=== PATIENT | male | born 1940 | race Caucasian/White ===

== ENCOUNTER 2017-01-05 14:04 | Inpatient (IN) | payer MEDICARE, MEDICAID ==
[~2017-01-05] VITALS: Ht 174 cm; Wt 86.8 kg
[~2017-01-05 14:04] MED LIST: ATOR40TA PO; CELE200C PO; CEPH-368 PO; DEXL60CA PO; DOCU240C53 PO; DOXY100T PO; FEXO180T; FLUT1DIS3 INH; FOLI-17 PO; FURO-93 PO; GABA600T2 PO; LEVO750T26 PO; LISI5TAB7 PO; LORA1TAB PO; LUBI24CA5 PO; METF500T4 PO; METH5TAB PO; METO25TA35 PO; NYST1000 PO; OMEG500C PO; OMEG500C3 PO; OXYC-229 PO; OXYC-96 PO; PANT40TA3 PO; PRED20TA PO; SALM50DI INH; TIOT18CA INH; TRAZ100T15 PO; TRAZ50TA18 PO; WARF5TAB PO
[2017-01-05] MEDS ORDERED: DILTIAZEM 125 MG in DEXTROSE 5% 100 ML IV SCH (14:35)
[2017-01-05] MEDS ORDERED: ASPIRIN 81 MG TABLET CHEW ONE (14:54)
[2017-01-05] MEDS ORDERED: DILTIAZEM 5 MG/ML, 5ML ONE (14:54)
[2017-01-05] MEDS ORDERED: DILTIAZEM 5 MG/ML, 5ML IV ONE (15:00)
[2017-01-05] MEDS ORDERED: ASPIRIN 81 MG TABLET CHEW PO ONE (15:00)
[2017-01-05] MEDS ORDERED: SODIUM CHLORIDE FLUSH 10ML SYR IVF ONE (15:00)
[2017-01-05 15:05] LABS: HEMOGLOBIN 12.1 g/dL (13.7-18.0)
[2017-01-05 15:17] LABS: BLOOD UREA NITROGEN 13 mg/dL (7-18)
[2017-01-05] MEDS ORDERED: METO50TA82 PO (15:59)
[2017-01-05] MEDS ORDERED: GABA800T2 PO (15:59)
[2017-01-05] MEDS ORDERED: SODIUM CHLORIDE FLUSH 10ML SYR IVF PRN (16:00)
[2017-01-05] MEDS ORDERED: CEFTRIAXONE PMX 1GM/50ML 50 ML ONE (17:06)
[2017-01-05] MEDS ORDERED: methylPREDNISolone SOD SUCC 125 MG/2 ML ONE (17:06)
[2017-01-05] MEDS: CEFTRIAXONE PMX 1GM/50ML 50 ML IV SCH (17:11)
[2017-01-05] MEDS: methylPREDNISolone SOD SUCC 125 MG/2 ML IVPush SCH ×2 (17:11→22:29)
[2017-01-05] MEDS ORDERED: DILTIAZEM 125 MG in SODIUM CHLORIDE 0.9% 100 ML IV PRN (18:00)
[2017-01-05] MEDS ORDERED: DOXYCYCLINE 100MG TABLET PO ONE (18:00)
[2017-01-05 18:02] VITALS: BP 110/73
[2017-01-05] MEDS: ENOXAPARIN 80 MG/0.8 ML SQ SCH (19:00)
[2017-01-05] MEDS ORDERED: ONDANSETRON 2MG/ML, 2ML IVPush PRN (20:30)
[2017-01-05] MEDS ORDERED: morphine SULFATE 10 MG/ML, 1ML IVPush PRN (20:30)
[2017-01-05] MEDS ORDERED: DILTIAZEM 30 MG TABLET PO SCH (21:00)
[2017-01-05 21:03] VITALS: BP 119/74
[2017-01-05] MEDS: METOPROLOL TARTRATE 50 MG TABLET PO SCH (21:06)
[2017-01-05] MEDS: TRAZODONE 50MG TABLET PO SCH (21:07)
[2017-01-05] MEDS: NICOTINE 21 MG/24 HR PATCH.TD24 TD SCH (21:07)
[2017-01-06] MEDS: DILTIAZEM 30 MG TABLET PO SCH ×4 (03:12→20:26)
[2017-01-06 03:25] VITALS: BP 108/71
[2017-01-06] MEDS: methylPREDNISolone SOD SUCC 125 MG/2 ML IVPush SCH (04:37)
[2017-01-06] MEDS ORDERED: ALBUTEROL SULFATE 2.5 MG/3 ML ONE (05:28)
[2017-01-06] MEDS: ALBUTEROL SULFATE 2.5 MG/3 ML NPPB SCH ×4 (07:00→22:03)
[2017-01-06 07:41] VITALS: BP 122/78
[2017-01-06] MEDS: LUBIPROSTONE 24 MCG CAPSULE PO SCH (09:35)
[2017-01-06] MEDS: OMEPRAZOLE 20 MG CAPSULE.DR PO SCH (09:36)
[2017-01-06] MEDS: ENOXAPARIN 80 MG/0.8 ML SQ SCH ×2 (09:36→20:26)
[2017-01-06] MEDS: METOPROLOL TARTRATE 50 MG TABLET PO SCH ×2 (09:36→20:26)
[2017-01-06] MEDS: NICOTINE 21 MG/24 HR PATCH.TD24 TD SCH (09:37)
[2017-01-06] MEDS: methylPREDNISolone SOD SUCC 40 MG/ML IVPush SCH ×3 (09:38→22:24)
[2017-01-06 11:46] VITALS: BP 110/67
[2017-01-06] MEDS: HYDROcodone/APAP 10/325 MG TABLET PO PRN ×2 (11:47→22:25)
[2017-01-06] MEDS: GABAPENTIN 400 MG CAPSULE PO SCH ×3 (11:47→20:27)
[2017-01-06 14:20] VITALS: BP 110/72
[2017-01-06] MEDS: CEFTRIAXONE PMX 1GM/50ML 50 ML IV SCH (16:41)
[2017-01-06 19:43] VITALS: BP 110/73
[2017-01-06 20:24] VITALS: BP 111/73
[2017-01-06] MEDS: ATORVASTATIN 40 MG TABLET PO SCH (20:26)
[2017-01-06] MEDS: TRAZODONE 50MG TABLET PO SCH (20:27)
[2017-01-07 03:07] VITALS: BP 109/68
[2017-01-07] MEDS: DILTIAZEM 30 MG TABLET PO SCH ×4 (03:08→21:13)
[2017-01-07] MEDS: HYDROcodone/APAP 10/325 MG TABLET PO PRN ×2 (03:56→12:40)
[2017-01-07] MEDS: methylPREDNISolone SOD SUCC 40 MG/ML IVPush SCH ×4 (05:30→22:17)
[2017-01-07] MEDS: ALBUTEROL SULFATE 2.5 MG/3 ML NPPB SCH ×4 (06:51→19:36)
[2017-01-07 07:39] VITALS: BP 110/67
[2017-01-07] MEDS: ENOXAPARIN 80 MG/0.8 ML SQ SCH ×2 (08:00→21:11)
[2017-01-07] MEDS: GABAPENTIN 400 MG CAPSULE PO SCH ×3 (09:49→21:16)
[2017-01-07] MEDS: LUBIPROSTONE 24 MCG CAPSULE PO SCH (09:51)
[2017-01-07] MEDS: OMEPRAZOLE 20 MG CAPSULE.DR PO SCH (09:51)
[2017-01-07] MEDS: ATORVASTATIN 40 MG TABLET PO SCH (09:51)
[2017-01-07] MEDS: METOPROLOL TARTRATE 50 MG TABLET PO SCH ×2 (09:51→21:16)
[2017-01-07] MEDS: NICOTINE 21 MG/24 HR PATCH.TD24 TD SCH (09:51)
[2017-01-07 14:54] VITALS: BP 111/66
[2017-01-07] MEDS: CEFTRIAXONE PMX 1GM/50ML 50 ML IV SCH (17:03)
[2017-01-07 19:00] VITALS: BP 115/70
[2017-01-07] MEDS: TRAZODONE 50MG TABLET PO SCH (21:16)
[2017-01-08 04:10] VITALS: BP 121/74
[2017-01-08] MEDS: HYDROcodone/APAP 10/325 MG TABLET PO PRN ×3 (05:48→22:42)
[2017-01-08] MEDS: DILTIAZEM 30 MG TABLET PO SCH ×4 (05:48→21:07)
[2017-01-08] MEDS: methylPREDNISolone SOD SUCC 40 MG/ML IVPush SCH ×4 (05:48→21:11)
[2017-01-08] MEDS: ALBUTEROL SULFATE 2.5 MG/3 ML NPPB SCH ×4 (07:00→19:56)
[2017-01-08 07:37] VITALS: BP 106/67
[2017-01-08] MEDS: OMEPRAZOLE 20 MG CAPSULE.DR PO SCH (09:36)
[2017-01-08] MEDS: ATORVASTATIN 40 MG TABLET PO SCH (09:37)
[2017-01-08] MEDS: METOPROLOL TARTRATE 50 MG TABLET PO SCH ×2 (09:38→21:08)
[2017-01-08] MEDS: GABAPENTIN 400 MG CAPSULE PO SCH ×3 (09:38→21:08)
[2017-01-08] MEDS: ENOXAPARIN 80 MG/0.8 ML SQ SCH ×2 (09:39→21:06)
[2017-01-08] MEDS: NICOTINE 21 MG/24 HR PATCH.TD24 TD SCH (09:39)
[2017-01-08] MEDS: LUBIPROSTONE 24 MCG CAPSULE PO SCH (09:56)
[2017-01-08 13:43] VITALS: BP 111/63
[2017-01-08] MEDS: CEFTRIAXONE PMX 1GM/50ML 50 ML IV SCH (16:59)
[2017-01-08] MEDS ORDERED: SODIUM CHLORIDE NASAL SPRAY 45ML BOTTLE NAS PRN (17:30)
[2017-01-08 19:16] VITALS: BP 115/71
[2017-01-08] MEDS: TRAZODONE 50MG TABLET PO SCH (21:07)
[2017-01-08 23:20] VITALS: BP 116/67
[2017-01-09 03:06] VITALS: BP 115/77
[2017-01-09] MEDS: DILTIAZEM 30 MG TABLET PO SCH ×4 (03:07→21:57)
[2017-01-09] MEDS: HYDROcodone/APAP 10/325 MG TABLET PO PRN ×2 (05:01→15:28)
[2017-01-09] MEDS: methylPREDNISolone SOD SUCC 40 MG/ML IVPush SCH ×4 (05:01→23:11)
[2017-01-09] MEDS: ALBUTEROL SULFATE 2.5 MG/3 ML NPPB SCH ×4 (07:00→20:00)
[2017-01-09 07:01] VITALS: BP 132/73
[2017-01-09] MEDS: ENOXAPARIN 80 MG/0.8 ML SQ SCH ×2 (08:00→20:00)
[2017-01-09] MEDS: OMEPRAZOLE 20 MG CAPSULE.DR PO SCH (08:52)
[2017-01-09] MEDS: ATORVASTATIN 40 MG TABLET PO SCH (08:54)
[2017-01-09] MEDS: METOPROLOL TARTRATE 50 MG TABLET PO SCH ×2 (08:54→21:57)
[2017-01-09] MEDS: GABAPENTIN 400 MG CAPSULE PO SCH ×3 (08:55→21:57)
[2017-01-09] MEDS: NICOTINE 21 MG/24 HR PATCH.TD24 TD SCH (08:55)
[2017-01-09] MEDS: LUBIPROSTONE 24 MCG CAPSULE PO SCH (10:00)
[2017-01-09] MEDS: MAGNESIUM OXIDE 400 MG TABLET PO SCH ×2 (10:15→21:57)
[2017-01-09 12:15] VITALS: BP 138/86
[2017-01-09] MEDS: CEFTRIAXONE PMX 1GM/50ML 50 ML IV SCH (17:09)
[2017-01-09] MEDS: WARFARIN 5 MG TABLET PO-COUM SCH (18:21)
[2017-01-09 19:36] VITALS: BP 127/80
[2017-01-09] MEDS: TRAZODONE 50MG TABLET PO SCH (21:57)
[2017-01-10] VITALS (7 sets, daily range): BP systolic 117–140; BP diastolic 74–86
[2017-01-10] MEDS: DILTIAZEM 30 MG TABLET PO SCH ×4 (05:33→22:04)
[2017-01-10] MEDS: methylPREDNISolone SOD SUCC 40 MG/ML IVPush SCH ×4 (05:33→22:05)
[2017-01-10] MEDS: HYDROcodone/APAP 10/325 MG TABLET PO PRN ×2 (05:36→18:53)
[2017-01-10 05:54] LABS: BLOOD UREA NITROGEN 32 mg/dL (7-18)
[2017-01-10] MEDS: ALBUTEROL SULFATE 2.5 MG/3 ML NPPB SCH ×4 (07:10→20:20)
[2017-01-10] MEDS: OMEPRAZOLE 20 MG CAPSULE.DR PO SCH (07:53)
[2017-01-10] MEDS: ACETAMINOPHEN 325 MG TABLET PO PRN ×2 (08:01→23:26)
[2017-01-10] MEDS: MAGNESIUM OXIDE 400 MG TABLET PO SCH ×2 (08:54→20:53)
[2017-01-10] MEDS: GABAPENTIN 400 MG CAPSULE PO SCH ×3 (08:54→20:54)
[2017-01-10] MEDS: LUBIPROSTONE 24 MCG CAPSULE PO SCH (08:55)
[2017-01-10] MEDS: ATORVASTATIN 40 MG TABLET PO SCH (08:55)
[2017-01-10] MEDS: METOPROLOL TARTRATE 50 MG TABLET PO SCH ×2 (08:55→20:54)
[2017-01-10] MEDS: ENOXAPARIN 80 MG/0.8 ML SQ SCH ×2 (08:56→20:54)
[2017-01-10] MEDS: NICOTINE 21 MG/24 HR PATCH.TD24 TD SCH (08:58)
[2017-01-10] MEDS ORDERED: WARFARIN 5 MG TABLET PO-COUM ONE (11:00)
[2017-01-10] MEDS: CEFTRIAXONE PMX 1GM/50ML 50 ML IV SCH (16:16)
[2017-01-10] MEDS: WARFARIN 5 MG TABLET PO-COUM SCH (18:51)
[2017-01-10] MEDS: TRAZODONE 50MG TABLET PO SCH (20:54)
[2017-01-11 02:20] VITALS: BP 102/57
[2017-01-11 03:13] VITALS: BP 122/72
[2017-01-11] MEDS: DILTIAZEM 30 MG TABLET PO SCH ×4 (03:23→21:54)
[2017-01-11] MEDS: HYDROcodone/APAP 10/325 MG TABLET PO PRN ×3 (03:25→16:07)
[2017-01-11] MEDS: methylPREDNISolone SOD SUCC 40 MG/ML IVPush SCH ×4 (03:25→21:54)
[2017-01-11 06:45] VITALS: BP 128/83
[2017-01-11] MEDS: ALBUTEROL SULFATE 2.5 MG/3 ML NPPB SCH ×4 (07:00→20:15)
[2017-01-11] MEDS: NICOTINE 21 MG/24 HR PATCH.TD24 TD SCH (08:14)
[2017-01-11] MEDS: OMEPRAZOLE 20 MG CAPSULE.DR PO SCH (08:14)
[2017-01-11] MEDS: GABAPENTIN 400 MG CAPSULE PO SCH ×3 (08:14→21:15)
[2017-01-11] MEDS: ATORVASTATIN 40 MG TABLET PO SCH (08:14)
[2017-01-11] MEDS: LUBIPROSTONE 24 MCG CAPSULE PO SCH (08:14)
[2017-01-11] MEDS: MAGNESIUM OXIDE 400 MG TABLET PO SCH ×2 (08:14→21:15)
[2017-01-11] MEDS: METOPROLOL TARTRATE 50 MG TABLET PO SCH ×2 (08:14→21:15)
[2017-01-11] MEDS: ENOXAPARIN 80 MG/0.8 ML SQ SCH ×2 (08:15→21:14)
[2017-01-11 13:17] VITALS: BP 127/74
[2017-01-11] MEDS: CEFTRIAXONE PMX 1GM/50ML 50 ML IV SCH (16:06)
[2017-01-11] MEDS ORDERED: POLYETHYLENE GLYCOL 17 GM PACKET PO ONE (16:30)
[2017-01-11] MEDS: WARFARIN 5 MG TABLET PO-COUM SCH (18:00)
[2017-01-11 20:27] VITALS: BP 127/85
[2017-01-11 21:09] VITALS: BP 136/83
[2017-01-11] MEDS: DOCUSATE 50 MG/5 ML, 10ML UDC PO SCH (21:15)
[2017-01-11] MEDS: TRAZODONE 50MG TABLET PO SCH (21:53)
[2017-01-12 02:36] VITALS: BP 111/58
[2017-01-12] MEDS: DILTIAZEM 30 MG TABLET PO SCH (04:24)
[2017-01-12] MEDS: methylPREDNISolone SOD SUCC 40 MG/ML IVPush SCH (04:24)
[2017-01-12] MEDS: HYDROcodone/APAP 10/325 MG TABLET PO PRN (04:41)
[2017-01-12 06:30] VITALS: BP 121/71
[2017-01-12] MEDS: ALBUTEROL SULFATE 2.5 MG/3 ML NPPB SCH (06:45)
[2017-01-12] MEDS: ENOXAPARIN 80 MG/0.8 ML SQ SCH (08:00)
[2017-01-12] MEDS ORDERED: PRAMIPEXOLE 0.5MG TABLET PO SCH (09:00)
[2017-01-12] MEDS: GABAPENTIN 400 MG CAPSULE PO SCH (09:46)
[2017-01-12] MEDS: NICOTINE 21 MG/24 HR PATCH.TD24 TD SCH (09:46)
[2017-01-12] MEDS: OMEPRAZOLE 20 MG CAPSULE.DR PO SCH (09:47)
[2017-01-12] MEDS: DOCUSATE 50 MG/5 ML, 10ML UDC PO SCH (09:47)
[2017-01-12] MEDS: ATORVASTATIN 40 MG TABLET PO SCH (09:47)
[2017-01-12] MEDS: METOPROLOL TARTRATE 50 MG TABLET PO SCH (09:47)
[2017-01-12] MEDS: LUBIPROSTONE 24 MCG CAPSULE PO SCH (09:47)
[2017-01-12] MEDS: MAGNESIUM OXIDE 400 MG TABLET PO SCH (09:47)
[2017-01-12] MEDS ORDERED: DOCU50LI12 PO (09:51)
[2017-01-12] MEDS ORDERED: DILT30TA27 PO (09:51)
[2017-01-12] MEDS ORDERED: METO25TA35 PO (09:53)
[2017-01-12] MEDS ORDERED: ALBUTEROL SULFATE 2.5 MG/3 ML NPPB SCH (21:00)
== END 2017-01-12 12:28 | disposition home health service (06) | DRG 871 ==
LOC: ED 15:55 → EDIP 15:56 → ED 16:10 → 5SO 17:52 → 4EST 01-08 23:05 → DCLOUNGE 01-12 11:56
PROC: 0T9B70Z Drainage of Bladder with Drainage Device, Via Natural or Artificial Opening (ICD-10-PCS; principal; 2017-01-05)
DX: A41.9 Sepsis, unspecified organism (principal); J18.9 Pneumonia, unspecified organism; J44.0 Chronic obstructive pulmonary disease with (acute) lower respiratory infection; I50.32 Chronic diastolic (congestive) heart failure; J44.1 Chronic obstructive pulmonary disease with (acute) exacerbation; J96.10 Chronic respiratory failure, unspecified whether with hypoxia or hypercapnia; I48.91 Unspecified atrial fibrillation; E11.9 Type 2 diabetes mellitus without complications; M19.90 Unspecified osteoarthritis, unspecified site; E78.5 Hyperlipidemia, unspecified; I11.0 Hypertensive heart disease with heart failure; I48.2 Chronic atrial fibrillation; I71.4 Abdominal aortic aneurysm, without rupture; K58.9 Irritable bowel syndrome, unspecified; Z79.01 Long term (current) use of anticoagulants; Z79.82 Long term (current) use of aspirin; Z86.79 Personal history of other diseases of the circulatory system; Z87.891 Personal history of nicotine dependence; Z90.49 Acquired absence of other specified parts of digestive tract; Z95.2 Presence of prosthetic heart valve; Z99.81 Dependence on supplemental oxygen
CPT/HCPCS: 36415; 71010; 74220; 76700; 80048; 81003; 82040; 83036; 83735; 83880; 84100; 84484; 85025; 85610; 85730; 87040; 87070; 87205; 93005; 94640; 96365; 96366; 96375; J0696; J1650; J7613; J2920; J2930

== ENCOUNTER 2017-03-10 17:12 | Inpatient (IN) | payer MEDICARE, MEDICAID ==
[~2017-03-10] VITALS: Ht 172.7 cm; Wt 84.4 kg
[~2017-03-10 17:12] MED LIST changes: +DILT30TA27 PO; +DOCU50LI12 PO; +GABA800T2 PO; +METO50TA82 PO
[2017-03-10] MEDS ORDERED: SODIUM CHLORIDE FLUSH 10ML SYR IVF ONE (17:30)
[2017-03-10] MEDS ORDERED: ALBUTEROL/IPRATROPIUM 2.5MG/0.5MG, 3 ML NPPB ONE (17:30)
[2017-03-10] MEDS ORDERED: ALBUTEROL/IPRATROPIUM 2.5MG/0.5MG, 3 ML ONE (17:40)
[2017-03-10 17:55] LABS: ASPARTATE AMINO TRANSFERASE 21 U/L (15-37); BLOOD UREA NITROGEN 13 mg/dL (7-18)
[2017-03-10 18:08] LABS: IS PT STATUS REG ER OR PRE ER? YES
[2017-03-10] MEDS ORDERED: SODIUM CHLORIDE 0.9%, 500ML IVBOLUS ONE ×2 (18:30→21:00)
[2017-03-10] MEDS ORDERED: FENTANYL PF 100 MCG/2ML ONE (20:34)
[2017-03-10] MEDS ORDERED: OMNIPAQUE 350 MG/ML, 100ML BOTTLE ONE (20:40)
[2017-03-10] MEDS ORDERED: DILTIAZEM 5 MG/ML, 5ML ONE (20:43)
[2017-03-10] MEDS ORDERED: FENTANYL PF 100 MCG/2ML IVPush PRN (21:00)
[2017-03-10] MEDS ORDERED: DILTIAZEM 5 MG/ML, 5ML IVPush ONE (21:00)
[2017-03-10] MEDS: DILTIAZEM 125 MG in SODIUM CHLORIDE 0.9% 100 ML IV PRN (21:16)
[2017-03-10] MEDS ORDERED: BISACODYL 10 MG SUPP PR PRN (22:00)
[2017-03-10] MEDS ORDERED: POLYETHYLENE GLYCOL 17 GM PACKET PO PRN (22:00)
[2017-03-10] MEDS ORDERED: SODIUM CHLORIDE FLUSH 3ML SYRINGE IVF SCH (22:00)
[2017-03-10] MEDS ORDERED: NITROGLYCERIN 0.4 MG BOTTLE (25 TABS) SL PRN (22:00)
[2017-03-10] MEDS ORDERED: ONDANSETRON 2MG/ML, 2ML IVPush PRN (22:00)
[2017-03-10] MEDS ORDERED: DILTIAZEM 30 MG TABLET PO SCH (22:00)
[2017-03-10] MEDS ORDERED: DILTIAZEM 125 MG in SODIUM CHLORIDE 0.9% 100 ML IV SCH (22:30)
[2017-03-10 22:53] LABS: IS PT STATUS REG ER OR PRE ER? YES
[2017-03-10 23:51] VITALS: BP 117/68
[2017-03-11] MEDS: FUROSEMIDE 20 MG/2 ML IV SCH ×3 (00:13→16:39)
[2017-03-11] MEDS: metFORMIN 500 MG TABLET PO SCH ×4 (00:14→08:15)
[2017-03-11] MEDS: DILTIAZEM 125 MG in SODIUM CHLORIDE 0.9% 100 ML IV PRN (00:16)
[2017-03-11 00:37] VITALS: BP 117/68
[2017-03-11] MEDS: TRAZODONE 50MG TABLET PO SCH ×2 (00:55→21:27)
[2017-03-11] MEDS: GABAPENTIN 400 MG CAPSULE PO SCH ×4 (00:56→21:28)
[2017-03-11] MEDS: METOPROLOL TARTRATE 50 MG TABLET PO SCH ×3 (00:56→21:28)
[2017-03-11] MEDS: ACETAMINOPHEN 325 MG TABLET PO PRN (03:17)
[2017-03-11 03:36] VITALS: BP 119/74
[2017-03-11] MEDS: morphine SULFATE 10 MG/ML, 1ML IVPush PRN ×3 (03:47→14:47)
[2017-03-11 04:41] LABS: ASPARTATE AMINO TRANSFERASE 17 U/L (15-37); BLOOD UREA NITROGEN 13 mg/dL (7-18)
[2017-03-11 04:43] LABS: IS PT STATUS REG ER OR PRE ER? NO
[2017-03-11] MEDS: GUAIFENESIN/DM 100-10MG, 5ML UDC PO PRN ×2 (05:43→21:34)
[2017-03-11] MEDS: ASPIRIN 81 MG TABLET EC PO SCH (05:43)
[2017-03-11 06:30] VITALS: BP 102/70
[2017-03-11] MEDS ORDERED: ALBUTEROL SULFATE 2.5 MG/3 ML ONE (07:12)
[2017-03-11] MEDS ORDERED: ALBUTEROL SULFATE 2.5 MG/3 ML NPPB PRN (07:30)
[2017-03-11] MEDS: LISINOPRIL 5 MG TABLET PO SCH (08:09)
[2017-03-11] MEDS: LUBIPROSTONE 24 MCG CAPSULE PO SCH (08:09)
[2017-03-11] MEDS: SENNA/DOCUSATE TABLET PO SCH ×2 (08:14→21:46)
[2017-03-11] MEDS: SODIUM CHLORIDE FLUSH 10ML SYR IVF SCH ×3 (08:19→21:27)
[2017-03-11] MEDS ORDERED: ATORVASTATIN 40 MG TABLET PO SCH (09:00)
[2017-03-11] MEDS ORDERED: COLC0.6T37 PO (09:16)
[2017-03-11 12:30] VITALS: BP 101/67
[2017-03-11] MEDS ORDERED: MAGNESIUM SULFATE PMX 2GM/50ML 50 ML IV ONE (13:30)
[2017-03-11] MEDS ORDERED: DEXTROSE 50%, 50ML SYRINGE IVPush PRN (13:30)
[2017-03-11] MEDS ORDERED: GLUCAGON 1 MG IM PRN (13:30)
[2017-03-11] MEDS ORDERED: DEXTROSE 4 GM TAB.CHEW PO PRN (13:30)
[2017-03-11] MEDS: COLCHICINE 0.6 MG TABLET PO SCH (14:32)
[2017-03-11 15:50] VITALS: BP 90/60
[2017-03-11] MEDS: INSULIN REGULAR 100 UNITS/ML, 3ML VIAL SQ-INSULIN SCH ×2 (16:00→21:00)
[2017-03-11] MEDS ORDERED: DIGOXIN 0.25 MG/ML, 2ML IVPush ONE (16:00)
[2017-03-11] MEDS ORDERED: WARFARIN 5 MG TABLET PO-COUM SCH (18:00)
[2017-03-11 18:17] VITALS: BP 109/71
[2017-03-11] MEDS: ATORVASTATIN 40 MG TABLET PO SCH (21:28)
[2017-03-12 01:57] VITALS: BP 96/60
[2017-03-12 04:54] LABS: BLOOD UREA NITROGEN 18 mg/dL (7-18)
[2017-03-12] MEDS: ASPIRIN 81 MG TABLET EC PO SCH (06:26)
[2017-03-12] MEDS: GUAIFENESIN/DM 100-10MG, 5ML UDC PO PRN ×2 (06:27→22:32)
[2017-03-12 06:40] LABS: LARGE PLATELETS 1+
[2017-03-12] MEDS: INSULIN REGULAR 100 UNITS/ML, 3ML VIAL SQ-INSULIN SCH ×4 (07:00→21:00)
[2017-03-12] MEDS: FUROSEMIDE 20 MG/2 ML IV SCH ×2 (08:14→16:20)
[2017-03-12] MEDS: LUBIPROSTONE 24 MCG CAPSULE PO SCH (08:14)
[2017-03-12 08:15] VITALS: BP 116/73
[2017-03-12] MEDS: SODIUM CHLORIDE FLUSH 10ML SYR IVF SCH ×4 (08:15→22:32)
[2017-03-12] MEDS: GABAPENTIN 400 MG CAPSULE PO SCH ×3 (08:15→19:33)
[2017-03-12] MEDS: COLCHICINE 0.6 MG TABLET PO SCH (08:15)
[2017-03-12] MEDS: METOPROLOL TARTRATE 50 MG TABLET PO SCH ×2 (08:15→22:32)
[2017-03-12] MEDS: LISINOPRIL 5 MG TABLET PO SCH (08:15)
[2017-03-12 12:40] VITALS: BP 124/75
[2017-03-12] MEDS: GUAIFENESIN ER 600 MG TABLET PO SCH ×2 (13:29→22:32)
[2017-03-12] MEDS: SPIRONOLACTONE 25 MG TABLET PO SCH (13:29)
[2017-03-12] MEDS: morphine SULFATE 10 MG/ML, 1ML IVPush PRN ×2 (15:59→19:33)
[2017-03-12] MEDS: FLUTICASONE/VILANTEROL 100-25MCG/INH INH SCH (16:17)
[2017-03-12] MEDS: OXYcodone IR 5MG TABLET PO PRN ×2 (17:56→22:31)
[2017-03-12] MEDS ORDERED: DILTIAZEM 5 MG/ML, 5ML IVPush ONE (18:00)
[2017-03-12] MEDS ORDERED: DILTIAZEM 5 MG/ML, 5ML ONE (18:01)
[2017-03-12 18:14] VITALS: BP 96/59
[2017-03-12 19:05] VITALS: BP 97/64
[2017-03-12] MEDS: TRAZODONE 50MG TABLET PO SCH (22:31)
[2017-03-12] MEDS: ATORVASTATIN 40 MG TABLET PO SCH (22:32)
[2017-03-13 00:55] VITALS: BP 91/59
[2017-03-13 06:03] LABS: BLOOD UREA NITROGEN 18 mg/dL (7-18)
[2017-03-13] MEDS: OXYcodone IR 5MG TABLET PO PRN ×4 (06:27→20:21)
[2017-03-13] MEDS: GUAIFENESIN/DM 100-10MG, 5ML UDC PO PRN (06:27)
[2017-03-13] MEDS: ASPIRIN 81 MG TABLET EC PO SCH (06:27)
[2017-03-13] MEDS: INSULIN REGULAR 100 UNITS/ML, 3ML VIAL SQ-INSULIN SCH ×4 (07:00→22:04)
[2017-03-13 07:05] VITALS: BP 100/65
[2017-03-13] MEDS: SENNA/DOCUSATE TABLET PO SCH (09:00)
[2017-03-13] MEDS: FUROSEMIDE 20 MG/2 ML IV SCH ×2 (09:11→16:32)
[2017-03-13] MEDS: SODIUM CHLORIDE FLUSH 10ML SYR IVF SCH ×4 (09:11→20:23)
[2017-03-13] MEDS: FLUTICASONE/VILANTEROL 100-25MCG/INH INH SCH (09:11)
[2017-03-13] MEDS: SPIRONOLACTONE 25 MG TABLET PO SCH (09:12)
[2017-03-13] MEDS: LUBIPROSTONE 24 MCG CAPSULE PO SCH (09:12)
[2017-03-13] MEDS: COLCHICINE 0.6 MG TABLET PO SCH (09:12)
[2017-03-13] MEDS: GUAIFENESIN ER 600 MG TABLET PO SCH ×2 (09:12→20:23)
[2017-03-13] MEDS: METOPROLOL TARTRATE 50 MG TABLET PO SCH ×2 (09:13→20:22)
[2017-03-13] MEDS: GABAPENTIN 400 MG CAPSULE PO SCH ×3 (09:13→20:22)
[2017-03-13] MEDS: LISINOPRIL 5 MG TABLET PO SCH (09:13)
[2017-03-13 12:30] VITALS: BP 98/57
[2017-03-13] MEDS: methylPREDNISolone SOD SUCC 125 MG/2 ML IVPush SCH ×2 (16:31→23:14)
[2017-03-13] MEDS ORDERED: WARFARIN 2 MG TABLET PO-COUM SCH (18:00)
[2017-03-13 19:29] VITALS: BP 107/69
[2017-03-13] MEDS: ATORVASTATIN 40 MG TABLET PO SCH (20:22)
[2017-03-13] MEDS: morphine SULFATE 10 MG/ML, 1ML IVPush PRN (23:13)
[2017-03-13] MEDS: TRAZODONE 50MG TABLET PO SCH (23:14)
[2017-03-14] MEDS: OXYcodone IR 5MG TABLET PO PRN ×2 (01:04→16:28)
[2017-03-14 02:27] VITALS: BP 106/67
[2017-03-14] MEDS: GUAIFENESIN/DM 100-10MG, 5ML UDC PO PRN (04:25)
[2017-03-14] MEDS: ASPIRIN 81 MG TABLET EC PO SCH (05:04)
[2017-03-14] MEDS: methylPREDNISolone SOD SUCC 125 MG/2 ML IVPush SCH ×3 (05:04→22:55)
[2017-03-14] MEDS: ACETAMINOPHEN 325 MG TABLET PO PRN (05:05)
[2017-03-14 06:24] LABS: BLOOD UREA NITROGEN 23 mg/dL (7-18)
[2017-03-14 08:03] VITALS: BP 105/67
[2017-03-14] MEDS: INSULIN REGULAR 100 UNITS/ML, 3ML VIAL SQ-INSULIN SCH ×4 (08:19→20:29)
[2017-03-14] MEDS: FUROSEMIDE 20 MG/2 ML IV SCH (08:19)
[2017-03-14] MEDS: FLUTICASONE/VILANTEROL 100-25MCG/INH INH SCH (08:20)
[2017-03-14] MEDS: LUBIPROSTONE 24 MCG CAPSULE PO SCH (08:20)
[2017-03-14] MEDS: SODIUM CHLORIDE FLUSH 10ML SYR IVF SCH ×3 (08:20→20:32)
[2017-03-14] MEDS: SPIRONOLACTONE 25 MG TABLET PO SCH (08:20)
[2017-03-14] MEDS: METOPROLOL TARTRATE 50 MG TABLET PO SCH ×2 (08:21→20:32)
[2017-03-14] MEDS: GUAIFENESIN ER 600 MG TABLET PO SCH ×2 (08:21→20:32)
[2017-03-14] MEDS: COLCHICINE 0.6 MG TABLET PO SCH (08:21)
[2017-03-14] MEDS: GABAPENTIN 400 MG CAPSULE PO SCH ×3 (08:21→20:32)
[2017-03-14] MEDS: SENNA/DOCUSATE TABLET PO SCH (08:22)
[2017-03-14] MEDS: LISINOPRIL 5 MG TABLET PO SCH (08:22)
[2017-03-14] MEDS ORDERED: MAGNESIUM SULFATE PMX 2GM/50ML 50 ML IV ONE (15:00)
[2017-03-14 15:05] VITALS: BP 99/62
[2017-03-14 17:06] VITALS: BP 105/66
[2017-03-14] MEDS ORDERED: WARFARIN 2 MG TABLET PO-COUM SCH (18:00)
[2017-03-14] MEDS ORDERED: SODIUM CHLORIDE NASAL SPRAY 45ML BOTTLE NAS PRN (18:00)
[2017-03-14 18:20] VITALS: BP 100/63
[2017-03-14] MEDS ORDERED: MORPHINE SULFATE 4 MG/ML, 1ML ONE (20:09)
[2017-03-14] MEDS: morphine SULFATE 10 MG/ML, 1ML IVPush PRN (20:26)
[2017-03-14] MEDS ORDERED: DEXTROSE 4 GM TAB.CHEW PO PRN ×2 (20:30)
[2017-03-14] MEDS ORDERED: GLUCAGON 1 MG IM PRN (20:30)
[2017-03-14] MEDS ORDERED: DEXTROSE 50%, 50ML SYRINGE IVPush PRN ×2 (20:30)
[2017-03-14] MEDS ORDERED: POLYETHYLENE GLYCOL 17 GM PACKET PO PRN ×2 (20:30)
[2017-03-14] MEDS ORDERED: ALBUTEROL SULFATE 2.5 MG/3 ML NPPB PRN (20:30)
[2017-03-14] MEDS ORDERED: BISACODYL 10 MG SUPP PR PRN ×2 (20:30)
[2017-03-14] MEDS: ATORVASTATIN 40 MG TABLET PO SCH (20:32)
[2017-03-14] MEDS ORDERED: SODIUM CHLORIDE FLUSH 10ML SYR IVF SCH (21:00)
[2017-03-14] MEDS: TRAZODONE 50MG TABLET PO SCH (22:55)
[2017-03-15 02:33] VITALS: BP 98/59
[2017-03-15 05:40] LABS: BLOOD UREA NITROGEN 29 mg/dL (7-18)
[2017-03-15 06:43] LABS: ANISOCYTOSIS 1+
[2017-03-15 06:44] LABS: LARGE PLATELETS 1+; POLYCHROMASIA 1+
[2017-03-15 07:04] VITALS: BP 115/70
[2017-03-15] MEDS: SPIRONOLACTONE 25 MG TABLET PO SCH (08:29)
[2017-03-15] MEDS: SENNA/DOCUSATE TABLET PO SCH (08:29)
[2017-03-15] MEDS: methylPREDNISolone SOD SUCC 125 MG/2 ML IVPush SCH ×2 (08:29→16:04)
[2017-03-15] MEDS: LUBIPROSTONE 24 MCG CAPSULE PO SCH (08:30)
[2017-03-15] MEDS: GABAPENTIN 400 MG CAPSULE PO SCH ×2 (08:30→16:03)
[2017-03-15] MEDS: METOPROLOL TARTRATE 50 MG TABLET PO SCH (08:30)
[2017-03-15] MEDS: GUAIFENESIN ER 600 MG TABLET PO SCH (08:30)
[2017-03-15] MEDS: COLCHICINE 0.6 MG TABLET PO SCH (08:30)
[2017-03-15] MEDS: ASPIRIN 81 MG TABLET EC PO SCH (08:30)
[2017-03-15] MEDS: LISINOPRIL 5 MG TABLET PO SCH (08:30)
[2017-03-15] MEDS: INSULIN REGULAR 100 UNITS/ML, 3ML VIAL SQ-INSULIN SCH ×3 (08:31→16:04)
[2017-03-15] MEDS: FLUTICASONE/VILANTEROL 100-25MCG/INH INH SCH (08:31)
[2017-03-15] MEDS: SODIUM CHLORIDE FLUSH 10ML SYR IVF SCH (08:31)
[2017-03-15] MEDS ORDERED: FUROSEMIDE 40 MG TABLET PO SCH (09:00)
[2017-03-15] MEDS: OXYcodone IR 5MG TABLET PO PRN ×2 (11:27→16:03)
[2017-03-15 14:00] VITALS: BP 106/63
[2017-03-15] MEDS ORDERED: SPIR25TA PO (16:54)
[2017-03-15] MEDS ORDERED: METO50TA82 PO (16:54)
[2017-03-15] MEDS ORDERED: ASPI-621 PO (16:54)
[2017-03-15] MEDS ORDERED: PRED10TA PO (16:54)
[2017-03-15] MEDS ORDERED: FURO40TA6 PO (16:54)
[2017-03-15] MEDS ORDERED: WARFARIN 2 MG TABLET PO-COUM ONE (18:00)
== END 2017-03-15 18:20 | DRG 308 ==
LOC: ED 20:31 → EDIP 21:03 → 5SO 23:13 → 4EST 03-14 16:59
PROVIDERS: ADMIT Internal Medicine; ATTEND Internal Medicine
DX: I48.92 Unspecified atrial flutter (principal); I50.43 Acute on chronic combined systolic (congestive) and diastolic (congestive) heart failure; J96.10 Chronic respiratory failure, unspecified whether with hypoxia or hypercapnia; J44.1 Chronic obstructive pulmonary disease with (acute) exacerbation; D68.69 Other thrombophilia; I11.0 Hypertensive heart disease with heart failure; D50.9 Iron deficiency anemia, unspecified; I48.91 Unspecified atrial fibrillation; K76.0 Fatty (change of) liver, not elsewhere classified; F17.210 Nicotine dependence, cigarettes, uncomplicated; E11.42 Type 2 diabetes mellitus with diabetic polyneuropathy; E78.5 Hyperlipidemia, unspecified; M19.90 Unspecified osteoarthritis, unspecified site; Z96.659 Presence of unspecified artificial knee joint; Z90.49 Acquired absence of other specified parts of digestive tract; Z95.2 Presence of prosthetic heart valve; Z95.1 Presence of aortocoronary bypass graft; Z79.01 Long term (current) use of anticoagulants; Z87.01 Personal history of pneumonia (recurrent); Z86.19 Personal history of other infectious and parasitic diseases; Z79.84 Long term (current) use of oral hypoglycemic drugs; Z79.899 Other long term (current) drug therapy; Z71.3 Dietary counseling and surveillance
CPT/HCPCS: 36415; 71010; 71275; 76700; 80048; 80053; 82962; 83735; 83880; 84439; 84443; 84484; 85025; 85610; 85730; 93005; 93306; 93931; 93970; 94640; 96361; 96374; J1815; J3010; J7620; Q9967; J1160; J1940; J2270; J2930; J3475; J7040

== ENCOUNTER 2017-05-24 13:46 | Inpatient (IN) | payer MEDICARE, MEDICAID ==
[~2017-05-24] VITALS: Ht 172.7 cm; Wt 96.6 kg
[~2017-05-24 13:46] MED LIST changes: +ASPI-621 PO; +COLC0.6T37 PO; -DEXL60CA PO; +DEXL60CA2 PO; +FURO40TA6 PO; -LUBI24CA5 PO; +LUBI24CA7 PO; -OXYC-229 PO; +OXYC-293 PO; +OXYC-307 PO; -OXYC-96 PO; +PRED10TA PO; +SPIR25TA PO
[2017-05-24] MEDS ORDERED: DILTIAZEM 5 MG/ML, 5ML ONE (14:27)
[2017-05-24] MEDS ORDERED: ASPIRIN 81 MG TABLET CHEW ONE (14:27)
[2017-05-24] MEDS ORDERED: DILTIAZEM 5 MG/ML, 5ML IVPush ONE (14:30)
[2017-05-24] MEDS ORDERED: ASPIRIN 81 MG TABLET CHEW PO ONE (14:30)
[2017-05-24 14:44] LABS: BLOOD UREA NITROGEN 17 mg/dL (7-18)
[2017-05-24 14:50] LABS: IS PT STATUS REG ER OR PRE ER? YES
[2017-05-24 14:58] LABS: HEMATOCRIT 42.4 % (39.2-51.8); HEMOGLOBIN 12.9 g/dL (13.7-18.0); WHITE BLOOD COUNT 14.7 x10^3/uL (3.4-10)
[2017-05-24 14:59] LABS: ANISOCYTOSIS 1+; HYPOCHROMIA 1+
[2017-05-24 15:00] LABS: LARGE PLATELETS 1+; POLYCHROMASIA 1+
[2017-05-24 17:50] VITALS: BP 104/64
[2017-05-24] MEDS ORDERED: DOCUSATE 100 MG CAPSULE PO PRN (18:30)
[2017-05-24] MEDS ORDERED: ACETAMINOPHEN 325 MG TABLET PO PRN (18:30)
[2017-05-24] MEDS ORDERED: LIDO35.46 TP (18:44)
[2017-05-24] MEDS ORDERED: WARF5TAB7 PO ×2 (18:45)
[2017-05-24 18:57] VITALS: BP 107/70
[2017-05-24 19:58] VITALS: BP 107/70
[2017-05-24] MEDS: DOCUSATE 100 MG CAPSULE PO SCH (20:34)
[2017-05-24] MEDS: GABAPENTIN 400 MG CAPSULE PO SCH (20:34)
[2017-05-24 20:35] VITALS: BP 112/63
[2017-05-24] MEDS: SODIUM CHLORIDE 0.9% 1,000 ML IV SCH (20:36)
[2017-05-24] MEDS: GUAIFENESIN ER 600 MG TABLET PO SCH (20:37)
[2017-05-24] MEDS: NICOTINE 14MG/24 HR PATCH.TD24 TD SCH (20:37)
[2017-05-24] MEDS: METOPROLOL TARTRATE 50 MG TABLET PO SCH (20:37)
[2017-05-24] MEDS: TRAZODONE 50MG TABLET PO SCH (20:38)
[2017-05-24] MEDS ORDERED: CEFTRIAXONE PMX 2GM/50ML 50 ML IV SCH (21:30)
[2017-05-24] MEDS ORDERED: AZITHROMYCIN 500 MG in SODIUM CHLORIDE 0.9% 250 ML IV SCH (21:30)
[2017-05-24 22:15] VITALS: BP 113/75
[2017-05-24] MEDS: INSULIN ASPART 100 UNITS/ML, PEN SQ-INSULIN SCH (23:00)
[2017-05-24] MEDS ORDERED: OMNIPAQUE 350 MG/ML, 100ML BOTTLE ONE (23:26)
[2017-05-24] MEDS: LIDOCAINE GEL 2%, 5ML TP PRN (23:41)
[2017-05-25] MEDS ORDERED: ALBUTEROL/IPRATROPIUM 2.5MG/0.5MG, 3 ML ONE (00:58)
[2017-05-25] MEDS ORDERED: FUROSEMIDE 20 MG/2 ML ONE (01:19)
[2017-05-25 01:30] VITALS: BP 98/67
[2017-05-25] MEDS ORDERED: FUROSEMIDE 20 MG/2 ML IV ONE (01:30)
[2017-05-25] MEDS ORDERED: ALBUTEROL/IPRATROPIUM 2.5MG/0.5MG, 3 ML NPPB PRN (01:30)
[2017-05-25 05:48] LABS: BLOOD UREA NITROGEN 16 mg/dL (7-18)
[2017-05-25 05:49] LABS: HEMATOCRIT 35.1 % (39.2-51.8); HEMOGLOBIN 10.9 g/dL (13.7-18.0); WHITE BLOOD COUNT 12.4 x10^3/uL (3.4-10)
[2017-05-25] MEDS: INSULIN ASPART 100 UNITS/ML, PEN SQ-INSULIN SCH ×4 (07:00→20:41)
[2017-05-25] MEDS: ALBUTEROL/IPRATROPIUM 2.5MG/0.5MG, 3 ML NPPB SCH ×4 (07:00→20:00)
[2017-05-25 07:28] VITALS: BP 110/65
[2017-05-25] MEDS ORDERED: HYDROcodone/CHLORPHENIR ORAL SUSP PO PRN (07:30)
[2017-05-25] MEDS: SODIUM CHLORIDE 0.9% 1,000 ML IV SCH ×2 (07:36→20:56)
[2017-05-25] MEDS ORDERED: HOLD WARFARIN MC PRN (08:00)
[2017-05-25 08:15] LABS: TOTAL IRON BINDING CAPACITY 402 mcg/dL (250-450)
[2017-05-25] MEDS: LIDOCAINE GEL 2%, 5ML TP PRN (09:43)
[2017-05-25] MEDS: FUROSEMIDE 40 MG TABLET PO SCH (09:45)
[2017-05-25] MEDS: METOPROLOL TARTRATE 50 MG TABLET PO SCH ×2 (09:45→20:40)
[2017-05-25] MEDS: LISINOPRIL 5 MG TABLET PO SCH (09:45)
[2017-05-25] MEDS: DOCUSATE 100 MG CAPSULE PO SCH ×2 (09:46→20:40)
[2017-05-25] MEDS: SPIRONOLACTONE 25 MG TABLET PO SCH (09:46)
[2017-05-25] MEDS: GUAIFENESIN ER 600 MG TABLET PO SCH ×2 (09:46→20:40)
[2017-05-25] MEDS: COLCHICINE 0.6 MG TABLET PO SCH (09:46)
[2017-05-25] MEDS: LUBIPROSTONE 24 MCG CAPSULE PO SCH (09:47)
[2017-05-25] MEDS: GABAPENTIN 400 MG CAPSULE PO SCH ×3 (09:51→20:41)
[2017-05-25 15:21] VITALS: BP 97/60
[2017-05-25 19:20] VITALS: BP 104/68
[2017-05-25] MEDS: NICOTINE 14MG/24 HR PATCH.TD24 TD SCH (20:41)
[2017-05-25] MEDS: ATORVASTATIN 40 MG TABLET PO SCH (20:41)
[2017-05-25] MEDS: TRAZODONE 50MG TABLET PO SCH (22:29)
[2017-05-26] MEDS: ALBUTEROL/IPRATROPIUM 2.5MG/0.5MG, 3 ML NPPB SCH ×2 (07:00→10:20)
[2017-05-26 08:00] VITALS: BP 101/67
[2017-05-26] MEDS: DOCUSATE 100 MG CAPSULE PO SCH (09:00)
[2017-05-26] MEDS ORDERED: WARF5TAB PO (09:25)
[2017-05-26] MEDS: SODIUM CHLORIDE 0.9% 1,000 ML IV SCH (10:16)
[2017-05-26] MEDS: INSULIN ASPART 100 UNITS/ML, PEN SQ-INSULIN SCH (10:18)
[2017-05-26] MEDS: LUBIPROSTONE 24 MCG CAPSULE PO SCH (10:19)
[2017-05-26] MEDS: SPIRONOLACTONE 25 MG TABLET PO SCH (10:19)
[2017-05-26] MEDS: COLCHICINE 0.6 MG TABLET PO SCH (10:20)
[2017-05-26] MEDS: FUROSEMIDE 40 MG TABLET PO SCH (10:21)
[2017-05-26] MEDS: GUAIFENESIN ER 600 MG TABLET PO SCH (10:21)
[2017-05-26] MEDS: LISINOPRIL 5 MG TABLET PO SCH (10:22)
[2017-05-26] MEDS: ATORVASTATIN 40 MG TABLET PO SCH (10:22)
[2017-05-26] MEDS: METOPROLOL TARTRATE 50 MG TABLET PO SCH (10:22)
[2017-05-26] MEDS: GABAPENTIN 400 MG CAPSULE PO SCH (10:22)
== END 2017-05-26 13:20 | disposition home or self-care (01) | DRG 291 ==
LOC: ED 15:22 → EDIP 16:06 → 5SO 17:28 → DCLOUNGE 05-26 13:05
PROVIDERS: ADMIT Hospitalist; ATTEND Hospitalist
DX: I11.0 Hypertensive heart disease with heart failure (principal); J96.21 Acute and chronic respiratory failure with hypoxia; D68.69 Other thrombophilia; E11.42 Type 2 diabetes mellitus with diabetic polyneuropathy; J44.1 Chronic obstructive pulmonary disease with (acute) exacerbation; I48.92 Unspecified atrial flutter; I48.2 Chronic atrial fibrillation; I50.42 Chronic combined systolic (congestive) and diastolic (congestive) heart failure; D50.9 Iron deficiency anemia, unspecified; E78.5 Hyperlipidemia, unspecified; F17.200 Nicotine dependence, unspecified, uncomplicated; G89.29 Other chronic pain; I25.10 Atherosclerotic heart disease of native coronary artery without angina pectoris; K58.9 Irritable bowel syndrome, unspecified; Z79.01 Long term (current) use of anticoagulants; Z79.82 Long term (current) use of aspirin; Z95.2 Presence of prosthetic heart valve; Z99.81 Dependence on supplemental oxygen; Z90.49 Acquired absence of other specified parts of digestive tract
CPT/HCPCS: 36415; 71010; 71275; 80048; 82040; 82962; 83036; 83540; 83550; 83605; 83735; 84100; 84439; 84443; 84484; 85025; 85379; 85610; 85730; 87040; 87070; 87077; 87186; 87205; 93005; 94640; 96374; J0456; J0696; J1815; J7620; Q9967; J1940; J7030; J7050; J7512

== ENCOUNTER 2017-07-16 06:43 | Observation (INO) | payer MEDICARE, MEDICAID ==
[~2017-07-16] VITALS: Ht 172.7 cm; Wt 75.0 kg
[~2017-07-16 06:43] MED LIST changes: +LIDO35.46 TP; +WARF5TAB7 PO
[2017-07-16] MEDS ORDERED: SODIUM CHLORIDE 0.9% 1,000 ML IV SCH ×2 (07:17→07:30)
[2017-07-16 07:20] VITALS: BP 99/78
[2017-07-16 07:57] LABS: HEMATOCRIT 39.7 % (39.2-51.8); HEMOGLOBIN 12.5 g/dL (13.7-18.0); WHITE BLOOD COUNT 9.3 x10^3/uL (3.4-10)
[2017-07-16] MEDS ORDERED: DOCU240C53 PO (08:04)
[2017-07-16] MEDS ORDERED: FOLI-17 PO (08:04)
[2017-07-16] MEDS ORDERED: OMEG100023 PO (08:04)
[2017-07-16] MEDS ORDERED: OXYC1TAB9 PO (08:04)
[2017-07-16] MEDS ORDERED: CELE200C PO (08:04)
[2017-07-16] MEDS ORDERED: DEXL60CA2 PO (08:04)
[2017-07-16] MEDS ORDERED: DICL100G19 TP (08:04)
[2017-07-16] MEDS ORDERED: FEXO180T15 PO (08:04)
[2017-07-16] MEDS ORDERED: SALM50DI INH (08:04)
[2017-07-16] MEDS ORDERED: ASPI-621 PO (08:04)
[2017-07-16] MEDS ORDERED: DIGO125T PO (08:04)
[2017-07-16 08:10] LABS: BLOOD UREA NITROGEN 11 mg/dL (7-18)
[2017-07-16 08:13] LABS: ASPARTATE AMINO TRANSFERASE 18 U/L (15-37)
[2017-07-16] MEDS ORDERED: MIDAZOLAM 1 MG/ML, 5ML ONE (08:27)
[2017-07-16] MEDS ORDERED: FENTANYL PF 250 MCG/5ML ONE (08:27)
[2017-07-16] MEDS ORDERED: SUCCINYLCHOLINE 20 MG/ML, 10ML ONE (09:01)
[2017-07-16] MEDS ORDERED: ONDANSETRON 2MG/ML, 2ML ONE (09:01)
[2017-07-16] MEDS ORDERED: ALBUTEROL SULFATE 200 PUFFS/8.5 GR INH ONE (09:01)
[2017-07-16] MEDS ORDERED: PROPOFOL 10 MG/ML, 20ML ONE (09:01)
[2017-07-16] MEDS ORDERED: DEXAMETHASONE 4 MG/ML, 1ML ONE (09:01)
[2017-07-16] MEDS ORDERED: PHENYLEPHRINE 10 MG/ML ONE (09:01)
[2017-07-16] MEDS ORDERED: EPINEPHRINE 1 MG/ML, 1ML ONE (09:01)
[2017-07-16] MEDS ORDERED: LIDOCAINE 2%, 20ML ONE (09:26)
[2017-07-16] MEDS ORDERED: ONDANSETRON 2MG/ML, 2ML IVPush PRN (11:00)
[2017-07-16] MEDS ORDERED: EPHEDRINE 50 MG/ML, 1ML IVPush PRN (11:00)
[2017-07-16] MEDS ORDERED: ALBUTEROL/IPRATROPIUM 2.5MG/0.5MG, 3 ML NPPB PRN (11:00)
[2017-07-16] MEDS ORDERED: FENTANYL PF 100 MCG/2ML IV PRN (11:00)
[2017-07-16] MEDS ORDERED: ACETAMINOPHEN 325 MG TABLET PO PRN (11:00)
[2017-07-16] MEDS ORDERED: MIDAZOLAM 1 MG/ML, 2ML IV PRN (11:00)
[2017-07-16] MEDS ORDERED: LABETALOL 5MG/ML, 20ML IV PRN (11:00)
[2017-07-16] MEDS ORDERED: DOCUSATE CALCIUM 240 MG CAPSULE PO PRN (11:00)
[2017-07-16] MEDS ORDERED: DICLOFENAC SODIUM 2 GM TP PRN ×2 (11:00→14:30)
[2017-07-16] MEDS ORDERED: HYDROmorphone 1 MG/ML, 1ML IV PRN (11:00)
[2017-07-16] MEDS ORDERED: OXYcodone 5 MG/5 ML ORAL.SOL UDC PO PRN (11:00)
[2017-07-16] MEDS: GABAPENTIN 400 MG CAPSULE PO SCH ×3 (11:00→20:52)
[2017-07-16] MEDS ORDERED: ACETAMINOPHEN 650 MG/20.3 ML UDC ONE (11:26)
[2017-07-16] MEDS ORDERED: OXYcodone 5 MG/5 ML ORAL.SOL UDC ONE (11:26)
[2017-07-16 15:57] VITALS: BP 115/70
[2017-07-16 16:05] VITALS: BP 110/65
[2017-07-16 18:46] VITALS: BP 113/72
[2017-07-16] MEDS: METOPROLOL TARTRATE 50 MG TABLET PO SCH (20:47)
[2017-07-16] MEDS: LUBIPROSTONE 24 MCG CAPSULE PO SCH (20:48)
[2017-07-16] MEDS: metFORMIN 500 MG TABLET PO SCH (20:52)
[2017-07-16] MEDS: SALMETEROL XINAFOATE 50 MCG INH SCH (20:52)
[2017-07-16] MEDS ORDERED: TRAZODONE 50MG TABLET PO SCH (21:00)
[2017-07-17 01:36] VITALS: BP 117/78
[2017-07-17] MEDS: GABAPENTIN 400 MG CAPSULE PO SCH ×3 (05:08→18:02)
[2017-07-17] MEDS: metFORMIN 500 MG TABLET PO SCH (07:18)
[2017-07-17] MEDS: SALMETEROL XINAFOATE 50 MCG INH SCH (07:20)
[2017-07-17 07:47] VITALS: BP 118/72
[2017-07-17] MEDS: LUBIPROSTONE 24 MCG CAPSULE PO SCH (08:14)
[2017-07-17] MEDS: METOPROLOL TARTRATE 50 MG TABLET PO SCH (08:16)
[2017-07-17] MEDS ORDERED: REGADENOSON 0.4 MG/5 ML SYRINGE ONE (08:17)
[2017-07-17] MEDS ORDERED: ASPIRIN 81 MG TABLET EC PO SCH (09:00)
[2017-07-17] MEDS ORDERED: FUROSEMIDE 40 MG TABLET PO SCH (09:00)
[2017-07-17] MEDS ORDERED: OMEGA-3/FISH OIL CAPSULE PO SCH (09:00)
[2017-07-17] MEDS ORDERED: WARFARIN 5 MG TABLET PO-COUM SCH (09:00)
[2017-07-17] MEDS ORDERED: ATORVASTATIN 40 MG TABLET PO SCH (09:00)
[2017-07-17] MEDS ORDERED: DIGOXIN 0.125 MG TABLET PO SCH (09:00)
[2017-07-17] MEDS ORDERED: CETIRIZINE 10 MG TABLET PO SCH (09:00)
[2017-07-17] MEDS ORDERED: LISINOPRIL 5 MG TABLET PO SCH (09:00)
[2017-07-17] MEDS ORDERED: PANTOPROZOLE 40MG TABLET PO SCH (09:00)
[2017-07-17 12:57] VITALS: BP 107/63
[2017-07-17] MEDS: ALBUTEROL/IPRATROPIUM 2.5MG/0.5MG, 3 ML NPPB SCH ×2 (12:58→16:20)
== END 2017-07-17 19:19 | disposition home or self-care (01) ==
LOC: CACL 06:43 → ORIP 10:54 → 5SO 13:39
PROVIDERS: ADMIT Internal Medicine Cardiovascular Disease; ATTEND Internal Medicine Cardiovascular Disease
DX: I48.92 Unspecified atrial flutter (principal); I48.91 Unspecified atrial fibrillation; E78.5 Hyperlipidemia, unspecified; E11.9 Type 2 diabetes mellitus without complications; I25.10 Atherosclerotic heart disease of native coronary artery without angina pectoris; I42.9 Cardiomyopathy, unspecified; I47.2 Ventricular tachycardia; J44.9 Chronic obstructive pulmonary disease, unspecified; Z79.01 Long term (current) use of anticoagulants; Z87.891 Personal history of nicotine dependence
CPT/HCPCS: 36415; 78452; 80053; 85025; 85610; 85730; 93005; 93017; 93312; 93321; 93325; 93613; 93621; 93653; 94640; A9502; C1730; C1731; C1766; C1894; C2630; C9898; G0378; J0171; J0330; J1100; J2250; J2370; J2405; J2704; J2785; J3010; J3490; J7620

== ENCOUNTER 2017-12-01 16:18 | Inpatient (IN) | payer MEDICARE, MEDICAID ==
[~2017-12-01] VITALS: Ht 172.7 cm; Wt 84.0 kg
[~2017-12-01 16:18] MED LIST changes: +DICL100G19 TP; +DIGO125T PO; +FEXO180T15 PO; +OMEG100023 PO; +OXYC1TAB9 PO; +WARF-36 PO; -WARF5TAB7 PO
[2017-12-01] MEDS ORDERED: ALBU0.63 NEB (16:35)
[2017-12-01] MEDS ORDERED: AMIT10TA PO (16:35)
[2017-12-01] MEDS ORDERED: ALBUTEROL/IPRATROPIUM 2.5MG/0.5MG, 3 ML NPPB ONE (17:00)
[2017-12-01] MEDS ORDERED: methylPREDNISolone SOD SUCC 125 MG/2 ML IVP ONE (17:00)
[2017-12-01] MEDS ORDERED: SODIUM CHLORIDE FLUSH 10ML SYR IVF ONE (17:00)
[2017-12-01] MEDS ORDERED: methylPREDNISolone SOD SUCC 125 MG/2 ML ONE (17:13)
[2017-12-01 17:31] LABS: MEAN CORPUSCULAR HEMOGLOBIN 29.3 pg (27.5-34.5); MEAN CORPUSCULAR HGB CONC 32.9 g/dL (33.2-36.2); MEAN PLATELET VOLUME 10.2 fL (7.4-10.4); PLATELET COUNT 174 x10^3/uL (130-400); RED CELL DISTRIBUTION WIDTH 17.9 % (9.4-14.8)
[2017-12-01 17:42] LABS: TROPONIN I < 0.015 ng/mL (0.000-0.045)
[2017-12-01] MEDS ORDERED: PIPERACILLIN/TAZO/PMX 3.375GM 50 ML ONE (17:47)
[2017-12-01] MEDS ORDERED: SODIUM CHLORIDE 0.9% 1,000 ML IV ONE (17:48)
[2017-12-01] MEDS ORDERED: PIPERACILLIN/TAZO/PMX 3.375GM 50 ML IV ONE (18:00)
[2017-12-01] MEDS ORDERED: VANCOMYCIN PER PHARMACY MC PRN ×2 (18:00→19:30)
[2017-12-01] MEDS ORDERED: SODIUM CHLORIDE 0.9% 1,000ML IVBOLUS ONE ×2 (18:00)
[2017-12-01] MEDS ORDERED: ALBUTEROL/IPRATROPIUM 2.5MG/0.5MG, 3 ML ONE (18:02)
[2017-12-01 18:11] LABS: ANION GAP 9 mmol/L (5-15); CALCIUM 8.6 mg/dL (8.5-10.1); CHLORIDE 100 mmol/L (98-107); CREATININE 1.14 mg/dL (0.7-1.3)
[2017-12-01 18:23] LABS: BASOPHILS # (AUTO) 0.05 x10^3/uL (0-0.1); BASOPHILS % (AUTO) 0 % (0-1); EOSINOPHILS # (AUTO) 0.02 x10^3/uL (0-0.4); EOSINOPHILS % (AUTO) 0 % (1-7); LYMPHOCYTES # (AUTO) 1.36 x10^3/uL (1-3.4); LYMPHOCYTES % (AUTO) 7 % (22-44); MD SCAN; MONOCYTES # (AUTO) 1.72 x10^3/uL (0.2-0.8); MONOCYTES % (AUTO) 9 % (2-9); NEUTROPHILS # (AUTO) 16.37 x10^3/uL (1.8-6.8); NEUTROPHILS % (AUTO) 84 % (42-75)
[2017-12-01] MEDS ORDERED: VANCOMYCIN 1,300 MG in SODIUM CHLORIDE 0.9% 250 ML IV ONE (18:30)
[2017-12-01] MEDS ORDERED: DICLOFENAC SODIUM 2 GM TP PRN (19:30)
[2017-12-01] MEDS ORDERED: BISACODYL 10 MG SUPP PR PRN (19:30)
[2017-12-01] MEDS ORDERED: ONDANSETRON 2MG/ML, 2ML IVPush PRN (19:30)
[2017-12-01] MEDS ORDERED: POLYETHYLENE GLYCOL 17 GM PACKET PO PRN (19:30)
[2017-12-01] MEDS ORDERED: GUAIFENESIN/DM 200-20MG, 10ML UDC PO PRN (19:30)
[2017-12-01] MEDS ORDERED: ACETAMINOPHEN 325 MG TABLET PO PRN (19:30)
[2017-12-01 19:43] LABS: INTERNATIONAL NORMALIZED RATIO 3.5 (0.93-1.1); PROTHROMBIN TIME 35.5 Seconds (9.6-11.5)
[2017-12-01] MEDS ORDERED: PHARMACOKINETIC CONSULTATION MC ONE (21:00)
[2017-12-01] MEDS ORDERED: SALMETEROL XINAFOATE 50 MCG INH SCH (21:00)
[2017-12-01] MEDS ORDERED: SODIUM CHLORIDE 0.9% 1,000 ML IV SCH (21:00)
[2017-12-01] MEDS: ALBUTEROL SULFATE 2.5 MG/3 ML HHN SCH (21:00)
[2017-12-01] MEDS ORDERED: PHARMACOKINETIC MONITORING MC PRN (21:00)
[2017-12-01] MEDS: ALBUTEROL/IPRATROPIUM 2.5MG/0.5MG, 3 ML NPPB SCH (22:20)
[2017-12-01] MEDS: ATORVASTATIN 40 MG TABLET PO SCH (22:29)
[2017-12-01 22:30] VITALS: BP 104/65
[2017-12-01] MEDS: LUBIPROSTONE 24 MCG CAPSULE PO SCH (22:30)
[2017-12-01] MEDS: AMITRIPTYLINE 10 MG TABLET PO SCH (22:30)
[2017-12-01] MEDS: metFORMIN 500 MG TABLET PO SCH (22:30)
[2017-12-01] MEDS: GABAPENTIN 400 MG CAPSULE PO SCH (22:30)
[2017-12-02] MEDS: PIPERACILLIN/TAZO/PMX 3.375GM 50 ML IV SCH ×4 (00:36→17:35)
[2017-12-02] MEDS: methylPREDNISolone SOD SUCC 125 MG/2 ML IVPush SCH ×4 (00:36→17:46)
[2017-12-02 01:06] VITALS: BP 93/53
[2017-12-02] MEDS: ALBUTEROL SULFATE 2.5 MG/3 ML HHN SCH (03:21)
[2017-12-02] MEDS ORDERED: FUROSEMIDE 20 MG/2 ML IV ONE (05:30)
[2017-12-02] MEDS: ALBUTEROL/IPRATROPIUM 2.5MG/0.5MG, 3 ML NPPB SCH ×5 (06:00→22:00)
[2017-12-02 06:03] LABS: BASOPHILS % (AUTO) 0 % (0-1); EOSINOPHILS % (AUTO) 0 % (1-7); LYMPHOCYTES # (AUTO) 0.55 x10^3/uL (1-3.4); LYMPHOCYTES % (AUTO) 4 % (22-44); MD NO; MEAN CORPUSCULAR HEMOGLOBIN 28.9 pg (27.5-34.5); MEAN CORPUSCULAR VOLUME 90.4 fL (81-97); MEAN PLATELET VOLUME 10.9 fL (7.4-10.4); MONOCYTES # (AUTO) 0.41 x10^3/uL (0.2-0.8); MONOCYTES % (AUTO) 3 % (2-9); NEUTROPHILS # (AUTO) 13.87 x10^3/uL (1.8-6.8); NEUTROPHILS % (AUTO) 94 % (42-75); PLATELET COUNT 141 x10^3/uL (130-400); RED BLOOD COUNT 3.75 x10^6/uL (4.38-5.82); RED CELL DISTRIBUTION WIDTH 18.1 % (9.4-14.8)
[2017-12-02 06:08] LABS: CALCIUM 8.7 mg/dL (8.5-10.1); CHLORIDE 105 mmol/L (98-107)
[2017-12-02] MEDS: GABAPENTIN 400 MG CAPSULE PO SCH ×4 (06:08→21:14)
[2017-12-02 06:20] LABS: ALANINE AMINOTRANSFERASE 20 U/L (12-78); ALKALINE PHOSPHATASE 101 U/L (45-117); ANION GAP 12 mmol/L (5-15); BILIRUBIN,TOTAL 0.5 mg/dL (0.2-1.0); CREATININE 1.34 mg/dL (0.7-1.3); TOTAL PROTEIN 6.4 g/dL (6.4-8.2)
[2017-12-02 08:00] VITALS: BP 108/61
[2017-12-02] MEDS: AMITRIPTYLINE 10 MG TABLET PO SCH ×2 (08:45→21:14)
[2017-12-02] MEDS: LUBIPROSTONE 24 MCG CAPSULE PO SCH ×2 (08:45→21:14)
[2017-12-02] MEDS: FOLIC ACID 1 MG TABLET PO SCH (08:45)
[2017-12-02] MEDS: metFORMIN 500 MG TABLET PO SCH ×2 (08:45→21:14)
[2017-12-02] MEDS: ASPIRIN 81 MG TABLET EC PO SCH (08:45)
[2017-12-02] MEDS: SENNA/DOCUSATE TABLET PO SCH (08:47)
[2017-12-02] MEDS ORDERED: DIGOXIN 0.25 MG/ML, 2ML IVPush ONE (09:30)
[2017-12-02] MEDS: GUAIFENESIN ER 600 MG TABLET PO SCH ×2 (13:12→21:14)
[2017-12-02 14:05] VITALS: BP 101/48
[2017-12-02 17:27] LABS: INTERNATIONAL NORMALIZED RATIO 2.08 (0.93-1.1); PROTHROMBIN TIME 21.3 Seconds (9.6-11.5)
[2017-12-02] MEDS: WARFARIN 5 MG TABLET PO-COUM SCH (17:35)
[2017-12-02] MEDS: VANCOMYCIN 1,400 MG in SODIUM CHLORIDE 0.9% 250 ML IV SCH (18:15)
[2017-12-02 19:45] VITALS: BP 98/47
[2017-12-02] MEDS: METOPROLOL TARTRATE 50 MG TABLET PO SCH (21:00)
[2017-12-02] MEDS: ATORVASTATIN 40 MG TABLET PO SCH (21:14)
[2017-12-02] MEDS: OXYcodone/APAP 10/325MG TABLET PO PRN (22:19)
[2017-12-03] MEDS: methylPREDNISolone SOD SUCC 125 MG/2 ML IVPush SCH ×2 (00:24→06:14)
[2017-12-03] MEDS: PIPERACILLIN/TAZO/PMX 3.375GM 50 ML IV SCH ×4 (00:24→20:43)
[2017-12-03] MEDS: ALBUTEROL/IPRATROPIUM 2.5MG/0.5MG, 3 ML NPPB PRN (01:23)
[2017-12-03 02:08] VITALS: BP 95/53
[2017-12-03 05:43] LABS: BASOPHILS % (AUTO) 0 % (0-1); EOSINOPHILS % (AUTO) 0 % (1-7); LYMPHOCYTES # (AUTO) 0.68 x10^3/uL (1-3.4); LYMPHOCYTES % (AUTO) 4 % (22-44); MD NO; MEAN CORPUSCULAR HGB CONC 32.4 g/dL (33.2-36.2); MEAN CORPUSCULAR VOLUME 89.3 fL (81-97); MEAN PLATELET VOLUME 10.2 fL (7.4-10.4); MONOCYTES # (AUTO) 0.59 x10^3/uL (0.2-0.8); MONOCYTES % (AUTO) 4 % (2-9); NEUTROPHILS # (AUTO) 15.08 x10^3/uL (1.8-6.8); NEUTROPHILS % (AUTO) 92 % (42-75); PLATELET COUNT 160 x10^3/uL (130-400); RED BLOOD COUNT 3.55 x10^6/uL (4.38-5.82); RED CELL DISTRIBUTION WIDTH 18.3 % (9.4-14.8)
[2017-12-03 05:46] LABS: ANION GAP 8 mmol/L (5-15); CALCIUM 8.8 mg/dL (8.5-10.1); CHLORIDE 103 mmol/L (98-107)
[2017-12-03 05:48] LABS: CREATININE 1.22 mg/dL (0.7-1.3)
[2017-12-03] MEDS: GABAPENTIN 400 MG CAPSULE PO SCH ×4 (06:13→20:44)
[2017-12-03] MEDS: ALBUTEROL/IPRATROPIUM 2.5MG/0.5MG, 3 ML NPPB SCH ×4 (07:52→16:26)
[2017-12-03 08:01] VITALS: BP 103/56
[2017-12-03] MEDS: SENNA/DOCUSATE TABLET PO SCH (09:00)
[2017-12-03] MEDS: GUAIFENESIN ER 600 MG TABLET PO SCH ×2 (09:48→20:43)
[2017-12-03] MEDS: LUBIPROSTONE 24 MCG CAPSULE PO SCH ×2 (09:49→20:43)
[2017-12-03] MEDS: METOPROLOL TARTRATE 50 MG TABLET PO SCH ×2 (09:49→20:44)
[2017-12-03] MEDS: OXYcodone/APAP 10/325MG TABLET PO PRN ×2 (09:49→15:33)
[2017-12-03] MEDS: ASPIRIN 81 MG TABLET EC PO SCH (09:50)
[2017-12-03] MEDS: FOLIC ACID 1 MG TABLET PO SCH (09:50)
[2017-12-03] MEDS: AMITRIPTYLINE 10 MG TABLET PO SCH ×2 (09:50→20:43)
[2017-12-03] MEDS: metFORMIN 500 MG TABLET PO SCH ×2 (09:50→20:43)
[2017-12-03 12:59] VITALS: BP 98/58
[2017-12-03] MEDS: NICOTINE 21 MG/24 HR PATCH.TD24 TD SCH (13:30)
[2017-12-03 16:55] LABS: INTERNATIONAL NORMALIZED RATIO 2.22 (0.93-1.1); PROTHROMBIN TIME 22.7 Seconds (9.6-11.5)
[2017-12-03] MEDS: VANCOMYCIN 1,400 MG in SODIUM CHLORIDE 0.9% 250 ML IV SCH (18:42)
[2017-12-03] MEDS: WARFARIN 5 MG TABLET PO-COUM SCH (18:44)
[2017-12-03 19:58] VITALS: BP 145/74
[2017-12-03] MEDS: ATORVASTATIN 40 MG TABLET PO SCH (20:43)
[2017-12-03] MEDS: FLUTICASONE NASAL SPRAY 16GM NAS SCH (21:54)
[2017-12-03 23:42] VITALS: BP 121/77
[2017-12-03] MEDS: TRAZODONE 50MG TABLET PO PRN (23:43)
[2017-12-04] MEDS: OXYcodone/APAP 10/325MG TABLET PO PRN ×3 (02:03→22:23)
[2017-12-04] MEDS: PIPERACILLIN/TAZO/PMX 3.375GM 50 ML IV SCH ×2 (02:03→08:24)
[2017-12-04] MEDS: ALBUTEROL/IPRATROPIUM 2.5MG/0.5MG, 3 ML NPPB PRN (04:35)
[2017-12-04 05:53] VITALS: BP 121/64
[2017-12-04] MEDS: GABAPENTIN 400 MG CAPSULE PO SCH ×4 (05:53→22:24)
[2017-12-04 05:54] LABS: BASOPHILS # (AUTO) 0.01 x10^3/uL (0-0.1); BASOPHILS % (AUTO) 0 % (0-1); EOSINOPHILS % (AUTO) 0 % (1-7); LYMPHOCYTES % (AUTO) 11 % (22-44); MD NO; MEAN CORPUSCULAR HEMOGLOBIN 29.2 pg (27.5-34.5); MEAN CORPUSCULAR HGB CONC 32.5 g/dL (33.2-36.2); MEAN CORPUSCULAR VOLUME 90.1 fL (81-97); MONOCYTES # (AUTO) 0.91 x10^3/uL (0.2-0.8); MONOCYTES % (AUTO) 7 % (2-9); NEUTROPHILS % (AUTO) 82 % (42-75); PLATELET COUNT 160 x10^3/uL (130-400); RED BLOOD COUNT 3.64 x10^6/uL (4.38-5.82); RED CELL DISTRIBUTION WIDTH 17.3 % (9.4-14.8)
[2017-12-04 06:01] LABS: CHLORIDE 101 mmol/L (98-107)
[2017-12-04 06:11] LABS: ANION GAP 7 mmol/L (5-15); CALCIUM 8.7 mg/dL (8.5-10.1); CREATININE 0.98 mg/dL (0.7-1.3)
[2017-12-04 07:15] VITALS: BP 124/71
[2017-12-04] MEDS: ALBUTEROL/IPRATROPIUM 2.5MG/0.5MG, 3 ML NPPB SCH ×5 (08:05→22:08)
[2017-12-04] MEDS: metFORMIN 500 MG TABLET PO SCH ×2 (08:24→22:23)
[2017-12-04] MEDS: METOPROLOL TARTRATE 50 MG TABLET PO SCH ×2 (08:24→22:23)
[2017-12-04] MEDS: NICOTINE 21 MG/24 HR PATCH.TD24 TD SCH (08:24)
[2017-12-04] MEDS: ASPIRIN 81 MG TABLET EC PO SCH (08:24)
[2017-12-04] MEDS: FOLIC ACID 1 MG TABLET PO SCH (08:25)
[2017-12-04] MEDS: LUBIPROSTONE 24 MCG CAPSULE PO SCH ×2 (08:25→22:23)
[2017-12-04] MEDS: GUAIFENESIN ER 600 MG TABLET PO SCH ×2 (08:25→22:23)
[2017-12-04] MEDS: SENNA/DOCUSATE TABLET PO SCH (08:25)
[2017-12-04] MEDS: AMITRIPTYLINE 10 MG TABLET PO SCH ×2 (08:25→22:24)
[2017-12-04] MEDS: FLUTICASONE NASAL SPRAY 16GM NAS SCH (08:34)
[2017-12-04] MEDS ORDERED: DEXTROSE 4 GM TAB.CHEW PO PRN (10:00)
[2017-12-04] MEDS ORDERED: DEXTROSE 50%, 50ML SYRINGE IVPush PRN (10:00)
[2017-12-04] MEDS ORDERED: CEFTRIAXONE PMX 1GM/50ML 50 ML IV SCH (10:00)
[2017-12-04] MEDS ORDERED: GLUCAGON 1 MG IM PRN (10:00)
[2017-12-04] MEDS: AZITHROMYCIN 500 MG in SODIUM CHLORIDE 0.9% 250 ML IV SCH (10:54)
[2017-12-04] MEDS: INSULIN LISPRO 100 UNITS/ML, PEN SQ-INSULIN SCH ×3 (11:41→21:00)
[2017-12-04 15:26] VITALS: BP 114/64
[2017-12-04 16:41] LABS: INTERNATIONAL NORMALIZED RATIO 2.81 (0.93-1.1); PROTHROMBIN TIME 28.6 Seconds (9.6-11.5)
[2017-12-04] MEDS: VANCOMYCIN 1,400 MG in SODIUM CHLORIDE 0.9% 250 ML IV SCH (17:19)
[2017-12-04] MEDS ORDERED: WARFARIN 2 MG TABLET PO-COUM ONE (18:00)
[2017-12-04] MEDS: SODIUM CHLORIDE FLUSH 10ML SYR IVF SCH (21:00)
[2017-12-04 21:33] VITALS: BP 114/71
[2017-12-04] MEDS: ATORVASTATIN 40 MG TABLET PO SCH (22:23)
[2017-12-04] MEDS: TRAZODONE 50MG TABLET PO PRN (22:24)
[2017-12-05 01:08] VITALS: BP 123/75
[2017-12-05] MEDS: GABAPENTIN 400 MG CAPSULE PO SCH ×4 (05:31→20:54)
[2017-12-05 05:40] LABS: BASOPHILS # (AUTO) 0.02 x10^3/uL (0-0.1); BASOPHILS % (AUTO) 0 % (0-1); EOSINOPHILS # (AUTO) 0.02 x10^3/uL (0-0.4); EOSINOPHILS % (AUTO) 0 % (1-7); LYMPHOCYTES # (AUTO) 1.79 x10^3/uL (1-3.4); LYMPHOCYTES % (AUTO) 15 % (22-44); MD NO; MEAN CORPUSCULAR HEMOGLOBIN 29.4 pg (27.5-34.5); MEAN CORPUSCULAR HGB CONC 32.1 g/dL (33.2-36.2); MEAN CORPUSCULAR VOLUME 91.7 fL (81-97); MEAN PLATELET VOLUME 9.6 fL (7.4-10.4); MONOCYTES # (AUTO) 1.12 x10^3/uL (0.2-0.8); MONOCYTES % (AUTO) 9 % (2-9); NEUTROPHILS # (AUTO) 8.94 x10^3/uL (1.8-6.8); NEUTROPHILS % (AUTO) 75 % (42-75); PLATELET COUNT 155 x10^3/uL (130-400); RED CELL DISTRIBUTION WIDTH 17.4 % (9.4-14.8)
[2017-12-05 05:49] LABS: INTERNATIONAL NORMALIZED RATIO 3.16 (0.93-1.1); PROTHROMBIN TIME 32.1 Seconds (9.6-11.5)
[2017-12-05 05:59] LABS: CHLORIDE 104 mmol/L (98-107)
[2017-12-05 06:10] LABS: ANION GAP 5 mmol/L (5-15); CALCIUM 8.4 mg/dL (8.5-10.1); CREATININE 0.83 mg/dL (0.7-1.3)
[2017-12-05 06:45] VITALS: BP 129/70
[2017-12-05] MEDS: ALBUTEROL/IPRATROPIUM 2.5MG/0.5MG, 3 ML NPPB SCH ×4 (07:00→21:20)
[2017-12-05] MEDS: INSULIN LISPRO 100 UNITS/ML, PEN SQ-INSULIN SCH ×4 (07:00→20:40)
[2017-12-05] MEDS: GUAIFENESIN ER 600 MG TABLET PO SCH ×2 (08:00→20:54)
[2017-12-05] MEDS: FOLIC ACID 1 MG TABLET PO SCH (08:01)
[2017-12-05] MEDS: LUBIPROSTONE 24 MCG CAPSULE PO SCH ×2 (08:01→20:54)
[2017-12-05] MEDS: ASPIRIN 81 MG TABLET EC PO SCH (08:01)
[2017-12-05] MEDS: metFORMIN 500 MG TABLET PO SCH ×2 (08:01→20:55)
[2017-12-05] MEDS: METOPROLOL TARTRATE 50 MG TABLET PO SCH ×2 (08:01→20:55)
[2017-12-05] MEDS: AMITRIPTYLINE 10 MG TABLET PO SCH ×2 (08:01→20:55)
[2017-12-05] MEDS: OXYcodone/APAP 10/325MG TABLET PO PRN ×2 (08:01→16:08)
[2017-12-05] MEDS: SENNA/DOCUSATE TABLET PO SCH (08:01)
[2017-12-05] MEDS: FLUTICASONE NASAL SPRAY 16GM NAS SCH (08:02)
[2017-12-05] MEDS: SODIUM CHLORIDE FLUSH 10ML SYR IVF SCH ×2 (08:02→20:55)
[2017-12-05] MEDS: NICOTINE 21 MG/24 HR PATCH.TD24 TD SCH (08:02)
[2017-12-05] MEDS: CEFTRIAXONE 1,000 MG in DEXTROSE 5% 50 ML IV SCH (10:09)
[2017-12-05] MEDS: AZITHROMYCIN 500 MG in SODIUM CHLORIDE 0.9% 250 ML IV SCH (10:41)
[2017-12-05 13:28] VITALS: BP 102/61
[2017-12-05] MEDS ORDERED: WARFARIN 3 MG TABLET PO-COUM SCH (18:00)
[2017-12-05 20:40] VITALS: BP 118/81
[2017-12-05] MEDS: ATORVASTATIN 40 MG TABLET PO SCH (20:54)
[2017-12-06 01:47] VITALS: BP 108/65
[2017-12-06 05:11] LABS: INTERNATIONAL NORMALIZED RATIO 2.39 (0.93-1.1); PROTHROMBIN TIME 24.4 Seconds (9.6-11.5)
[2017-12-06 05:15] LABS: BASOPHILS # (AUTO) 0.04 x10^3/uL (0-0.1); BASOPHILS % (AUTO) 0 % (0-1); EOSINOPHILS # (AUTO) 0.06 x10^3/uL (0-0.4); EOSINOPHILS % (AUTO) 1 % (1-7); LYMPHOCYTES % (AUTO) 13 % (22-44); MD NO; MEAN CORPUSCULAR HEMOGLOBIN 29.1 pg (27.5-34.5); MEAN CORPUSCULAR HGB CONC 32.4 g/dL (33.2-36.2); MEAN CORPUSCULAR VOLUME 89.9 fL (81-97); MEAN PLATELET VOLUME 9.8 fL (7.4-10.4); MONOCYTES # (AUTO) 1.15 x10^3/uL (0.2-0.8); MONOCYTES % (AUTO) 10 % (2-9); NEUTROPHILS # (AUTO) 8.56 x10^3/uL (1.8-6.8); NEUTROPHILS % (AUTO) 76 % (42-75); PLATELET COUNT 162 x10^3/uL (130-400); RED BLOOD COUNT 3.74 x10^6/uL (4.38-5.82); RED CELL DISTRIBUTION WIDTH 17.4 % (9.4-14.8)
[2017-12-06] MEDS: GABAPENTIN 400 MG CAPSULE PO SCH ×3 (05:59→17:06)
[2017-12-06] MEDS: INSULIN LISPRO 100 UNITS/ML, PEN SQ-INSULIN SCH ×3 (07:00→17:06)
[2017-12-06 07:20] VITALS: BP 119/75
[2017-12-06] MEDS: METOPROLOL TARTRATE 50 MG TABLET PO SCH (08:22)
[2017-12-06] MEDS: AMITRIPTYLINE 10 MG TABLET PO SCH (08:22)
[2017-12-06] MEDS: GUAIFENESIN ER 600 MG TABLET PO SCH (08:22)
[2017-12-06] MEDS: SENNA/DOCUSATE TABLET PO SCH (08:22)
[2017-12-06] MEDS: LUBIPROSTONE 24 MCG CAPSULE PO SCH (08:22)
[2017-12-06] MEDS: NICOTINE 21 MG/24 HR PATCH.TD24 TD SCH (08:23)
[2017-12-06] MEDS: ASPIRIN 81 MG TABLET EC PO SCH (08:23)
[2017-12-06] MEDS: SODIUM CHLORIDE FLUSH 10ML SYR IVF SCH (08:23)
[2017-12-06] MEDS: metFORMIN 500 MG TABLET PO SCH (08:23)
[2017-12-06] MEDS: FOLIC ACID 1 MG TABLET PO SCH (08:23)
[2017-12-06] MEDS: FLUTICASONE NASAL SPRAY 16GM NAS SCH (08:24)
[2017-12-06] MEDS ORDERED: IRON DEXTRAN IV PER PHARMACY IV PRN (09:00)
[2017-12-06] MEDS ORDERED: IRON DEXTRAN COMPLEX 25 MG in SODIUM CHLORIDE 0.9% 50 ML IV ONE (09:30)
[2017-12-06] MEDS ORDERED: SODIUM CHLORIDE 0.9% IV ONE (09:30)
[2017-12-06] MEDS ORDERED: IRON DEXTRAN COMPLEX IV ONE (09:30)
[2017-12-06] MEDS: CEFTRIAXONE 1,000 MG in DEXTROSE 5% 50 ML IV SCH (10:00)
[2017-12-06] MEDS: AZITHROMYCIN 500 MG in SODIUM CHLORIDE 0.9% 250 ML IV SCH (10:12)
[2017-12-06] MEDS: ALBUTEROL/IPRATROPIUM 2.5MG/0.5MG, 3 ML NPPB SCH ×2 (11:00→15:00)
[2017-12-06] MEDS ORDERED: AZITHROMYCIN 500 MG TABLET PO ONE (12:30)
[2017-12-06] MEDS ORDERED: CEFDINIR 300 MG CAPSULE PO ONE (12:30)
[2017-12-06 12:45] VITALS: BP 113/68
[2017-12-06] MEDS ORDERED: PRED20TA PO (13:22)
[2017-12-06] MEDS ORDERED: NICO-486 TD (13:22)
[2017-12-06] MEDS ORDERED: NICO-485 TD (13:22)
[2017-12-06] MEDS ORDERED: GUAI600T31 PO (13:22)
[2017-12-06] MEDS ORDERED: NICO-487 TD (13:22)
[2017-12-06] MEDS ORDERED: CEFD300C37 PO (13:22)
[2017-12-06] MEDS ORDERED: WARFARIN 5 MG TABLET PO-COUM ONE (18:00)
== END 2017-12-06 21:39 | disposition home health service (06) | DRG 871 ==
LOC: ED 17:07 → EDIP 18:44 → 4WST 20:13
PROVIDERS: ADMIT Internal Medicine; ATTEND Internal Medicine
DX: A41.9 Sepsis, unspecified organism (principal); J15.9 Unspecified bacterial pneumonia; J96.21 Acute and chronic respiratory failure with hypoxia; I11.0 Hypertensive heart disease with heart failure; D68.69 Other thrombophilia; E11.40 Type 2 diabetes mellitus with diabetic neuropathy, unspecified; I50.42 Chronic combined systolic (congestive) and diastolic (congestive) heart failure; I48.2 Chronic atrial fibrillation; J44.0 Chronic obstructive pulmonary disease with (acute) lower respiratory infection; J44.1 Chronic obstructive pulmonary disease with (acute) exacerbation; E78.5 Hyperlipidemia, unspecified; M19.90 Unspecified osteoarthritis, unspecified site; D50.9 Iron deficiency anemia, unspecified; F17.210 Nicotine dependence, cigarettes, uncomplicated; K58.9 Irritable bowel syndrome, unspecified; Z79.01 Long term (current) use of anticoagulants; Z79.82 Long term (current) use of aspirin; Z79.84 Long term (current) use of oral hypoglycemic drugs; Z95.2 Presence of prosthetic heart valve; Z99.81 Dependence on supplemental oxygen
CPT/HCPCS: 36415; 71046; 80048; 80053; 80202; 82728; 82962; 83540; 83550; 83605; 83880; 84145; 84466; 84484; 85025; 85610; 87040; 87070; 87205; 93005; 94640; 96365; 96375; J0456; J0696; J1750; J2543; J3370; J7613; J7620; J1160; J1815; J1940; J2930; J7030; J7050; J7512

== ENCOUNTER → 2018-06-10 | Outpatient (CLI) | payer MEDICARE, MEDICAID ==
[~2018-06-10] MED LIST changes: +ALBU0.63 NEB; +AMIT10TA PO; +CEFD300C37 PO; +GUAI600T31 PO; +METF500T17 PO; -METF500T4 PO; +NICO-485 TD; +NICO-486 TD; +NICO-487 TD; +OXYC-432 PO; -OXYC1TAB9 PO; +TRAZ-136 PO; +TRAZ-137 PO; -TRAZ100T15 PO; -TRAZ50TA18 PO
== END | disposition home or self-care (01) ==
LOC: CFH 13:13
PROVIDERS: ATTEND Orthopaedic Surgery
DX: M48.02 Spinal stenosis, cervical region (principal); M75.50 Bursitis of unspecified shoulder; J44.9 Chronic obstructive pulmonary disease, unspecified; E11.9 Type 2 diabetes mellitus without complications
CPT/HCPCS: 72141

== ENCOUNTER 2018-12-07 18:51 | Inpatient (IN) | payer MEDICARE, MEDICAID ==
[~2018-12-07] VITALS: Ht 170.2 cm; Wt 73.8 kg
[~2018-12-07 18:51] MED LIST changes: -ASPI-621 PO; +ASPI81TA45 PO; +AZIT500T5 PO; +FLUT1DIS IH; -GABA600T2 PO; +GABA600T7 PO; -GABA800T2 PO; +GABA800T5 PO; +HYDR-3245 PO; -TRAZ-136 PO; +TRAZ50TA66 PO; +WARF1TAB PO
--- NOTE | 2018-12-07 19:07 | NUR ---
ASSUMED CARE OF PATIENT. PATIENT BIB [facility] FOR SOB. PT IS ALWAYS ON 4L NC. OXYGEN ON. PULSE OX ON AT 96% PT VS STABLE. CALL LIGHT IN PLACE. WILL CONTINUE TO MONITOR
[2018-12-07] MEDS ORDERED: METO50TA82 PO (19:30)
--- NOTE | 2018-12-07 19:36 | NUR ---
XRAY IN ROOM
[2018-12-07 19:43] LABS: BASOPHILS # (AUTO) 0.04 x10^3/uL (0-0.1); BASOPHILS % (AUTO) 1 % (0-1); EOSINOPHILS # (AUTO) 0.09 x10^3/uL (0-0.4); EOSINOPHILS % (AUTO) 1 % (1-7); LYMPHOCYTES # (AUTO) 1.72 x10^3/uL (1-3.4); LYMPHOCYTES % (AUTO) 26 % (22-44); MD NO; MEAN CORPUSCULAR HEMOGLOBIN 30.9 pg (27.5-34.5); MEAN CORPUSCULAR HGB CONC 33.1 g/dL (33.2-36.2); MEAN CORPUSCULAR VOLUME 93.4 fL (81-97); MEAN PLATELET VOLUME 9.3 fL (7.4-10.4); MONOCYTES # (AUTO) 0.72 x10^3/uL (0.2-0.8); MONOCYTES % (AUTO) 11 % (2-9); NEUTROPHILS # (AUTO) 4.02 x10^3/uL (1.8-6.8); NEUTROPHILS % (AUTO) 61 % (42-75); PLATELET COUNT 238 x10^3/uL (130-400); RED BLOOD COUNT 4.41 x10^6/uL (4.38-5.82); RED CELL DISTRIBUTION WIDTH 15.8 % (9.4-14.8)
--- NOTE | 2018-12-07 19:50 | NUR ---
PT USING BATHROOM
[2018-12-07 19:51] LABS: ALANINE AMINOTRANSFERASE 33 U/L (12-78); ALBUMIN 3.9 g/dL (3.4-5.0); ANION GAP 5 mmol/L (5-15); CALCIUM 9.1 mg/dL (8.5-10.1); CHLORIDE 101 mmol/L (98-107); CREATININE 0.98 mg/dL (0.7-1.3)
[2018-12-07 19:55] LABS: ALKALINE PHOSPHATASE 115 U/L (45-117); BILIRUBIN,TOTAL 0.5 mg/dL (0.2-1.0); TOTAL PROTEIN 7.2 g/dL (6.4-8.2); TROPONIN I < 0.015 ng/mL (0.000-0.045)
--- NOTE | 2018-12-07 20:10 | NUR ---
PT RESTING IN ROOM. VS STABLE. AMBULATORY ANALYST ON. NSR NOTED. WILL CONTINUE TO MONITOR.
[2018-12-07] MEDS ORDERED: ALBUTEROL SULFATE 2.5 MG/3 ML ONE (21:54)
--- NOTE | 2018-12-07 21:58 | NUR ---
DR GATES HAS UPDATED PATIENT. RT CALLED. VS STABLE. WILL CONTINUE TO MONITOR.
[2018-12-07] MEDS ORDERED: ALBUTEROL SULFATE 2.5 MG/3 ML NPPB ONE (22:00)
--- NOTE | 2018-12-07 22:25 | NUR ---
AFTER BREATHING TX PT STILL FEELS SOB. DR GATES AWARE.
--- NOTE | 2018-12-07 23:21 | NUR ---
PT WATCHING TV. NO ACUTE DISTRESS NOTED. CALL LIGHT IN PLACE. VS STABLE. WILL CONTINUE TO MONITOR.
[2018-12-08] MEDS ORDERED: ONDANSETRON ODT 4 MG PO PRN
[2018-12-08] MEDS ORDERED: HEPARIN 5,000 UNITS/ML, 1ML SQ SCH
[2018-12-08] MEDS ORDERED: methylPREDNISolone SOD SUCC 125 MG/2 ML IVPush ONE
--- NOTE | 2018-12-08 | NUR ---
REPORT CALLED INTO RISHI LANGE
[2018-12-08 00:07] LABS: INTERNATIONAL NORMALIZED RATIO 3.32 (0.93-1.1); PROTHROMBIN TIME 33.3 Seconds (9.6-11.5)
[2018-12-08 00:28] VITALS: BP 116/77
[2018-12-08] MEDS: GABAPENTIN 400 MG CAPSULE PO SCH ×5 (01:51→21:00)
[2018-12-08] MEDS: metFORMIN 500 MG TABLET PO SCH ×3 (01:51→21:00)
[2018-12-08] MEDS: ATORVASTATIN 40 MG TABLET PO SCH ×2 (01:51→21:00)
[2018-12-08] MEDS: NICOTINE 21 MG/24 HR PATCH.TD24 TD SCH (01:51)
[2018-12-08] MEDS: TRAZODONE 50MG TABLET PO SCH ×2 (01:51→21:00)
[2018-12-08] MEDS: SODIUM CHLORIDE FLUSH 10ML SYR IVF SCH ×3 (01:52→21:00)
[2018-12-08 02:40] VITALS: BP 110/69
[2018-12-08 05:04] LABS: BASOPHILS # (AUTO) 0.01 x10^3/uL (0-0.1); BASOPHILS % (AUTO) 0 % (0-1); EOSINOPHILS % (AUTO) 0 % (1-7); LYMPHOCYTES # (AUTO) 0.66 x10^3/uL (1-3.4); LYMPHOCYTES % (AUTO) 11 % (22-44); MD NO; MEAN CORPUSCULAR HEMOGLOBIN 31.2 pg (27.5-34.5); MEAN CORPUSCULAR HGB CONC 33.4 g/dL (33.2-36.2); MEAN CORPUSCULAR VOLUME 93.4 fL (81-97); MEAN PLATELET VOLUME 9.4 fL (7.4-10.4); MONOCYTES # (AUTO) 0.05 x10^3/uL (0.2-0.8); MONOCYTES % (AUTO) 1 % (2-9); NEUTROPHILS % (AUTO) 88 % (42-75); PLATELET COUNT 224 x10^3/uL (130-400); RED BLOOD COUNT 4.37 x10^6/uL (4.38-5.82)
[2018-12-08 05:12] LABS: CHLORIDE 101 mmol/L (98-107)
[2018-12-08 05:22] LABS: ALANINE AMINOTRANSFERASE 32 U/L (12-78); ALBUMIN 3.7 g/dL (3.4-5.0); ALKALINE PHOSPHATASE 113 U/L (45-117); ANION GAP 5 mmol/L (5-15); BILIRUBIN,TOTAL 0.5 mg/dL (0.2-1.0); CALCIUM 9.1 mg/dL (8.5-10.1); CREATININE 0.99 mg/dL (0.7-1.3); TOTAL PROTEIN 7.2 g/dL (6.4-8.2)
[2018-12-08] MEDS: ALBUTEROL SULFATE 2.5 MG/3 ML NPPB SCH ×4 (06:50→19:48)
[2018-12-08] MEDS: BUDESONIDE 0.5 MG/2 ML INHA NPPB SCH ×2 (06:50→19:48)
[2018-12-08 07:00] VITALS: BP 100/67
[2018-12-08] MEDS: COLCHICINE 0.6 MG TABLET PO SCH (08:28)
[2018-12-08] MEDS: LISINOPRIL 5 MG TABLET PO SCH (08:29)
[2018-12-08] MEDS: POLYETHYLENE GLYCOL 17 GM PACKET PO SCH (08:29)
[2018-12-08] MEDS: METOPROLOL TARTRATE 50 MG TABLET PO SCH (08:29)
[2018-12-08] MEDS: ASPIRIN 81 MG TABLET EC PO SCH (08:29)
[2018-12-08] MEDS: FUROSEMIDE 40 MG TABLET PO SCH (08:29)
[2018-12-08] MEDS: SENNA/DOCUSATE TABLET PO SCH (08:30)
[2018-12-08] MEDS: PANTOPROZOLE 40MG TABLET PO SCH (09:00)
[2018-12-08] MEDS ORDERED: TEMPLATE NON-FORMULARY MED. (Fluticasone/Salmeterol** (Advair 100-50 Diskus**) 1 PUFF) IH SCH (09:00)
[2018-12-08] MEDS: BISACODYL 10 MG SUPP PR SCH ×2 (09:00)
[2018-12-08] MEDS: methylPREDNISolone SOD SUCC 125 MG/2 ML IVPush SCH ×3 (10:00→17:41)
[2018-12-08] MEDS: HYDROcodone/APAP 10/325 MG TABLET PO PRN ×2 (10:39→15:17)
[2018-12-08 12:25] VITALS: BP 107/67
[2018-12-08] MEDS: WARFARIN 5 MG TABLET PO-COUM SCH (17:41)
[2018-12-08 20:00] VITALS: BP 115/62
[2018-12-08] MEDS: ACETAMINOPHEN 325 MG TABLET PO PRN (21:00)
[2018-12-09] MEDS: NICOTINE 21 MG/24 HR PATCH.TD24 TD SCH ×2 (01:35→08:48)
[2018-12-09] MEDS: methylPREDNISolone SOD SUCC 125 MG/2 ML IVPush SCH ×4 (01:35→22:05)
[2018-12-09 01:50] VITALS: BP 97/52
[2018-12-09] MEDS: GABAPENTIN 400 MG CAPSULE PO SCH ×4 (05:16→21:00)
[2018-12-09 07:05] VITALS: BP 115/57
[2018-12-09] MEDS: metFORMIN 500 MG TABLET PO SCH ×2 (08:47→21:06)
[2018-12-09] MEDS: FUROSEMIDE 40 MG TABLET PO SCH (08:47)
[2018-12-09] MEDS: PANTOPROZOLE 40MG TABLET PO SCH (08:47)
[2018-12-09] MEDS: HYDROcodone/APAP 10/325 MG TABLET PO PRN ×3 (08:47→21:24)
[2018-12-09] MEDS: ASPIRIN 81 MG TABLET EC PO SCH (08:47)
[2018-12-09] MEDS: LISINOPRIL 5 MG TABLET PO SCH (08:47)
[2018-12-09] MEDS: SODIUM CHLORIDE FLUSH 10ML SYR IVF SCH ×2 (08:48→21:00)
[2018-12-09] MEDS: METOPROLOL TARTRATE 50 MG TABLET PO SCH (08:48)
[2018-12-09] MEDS: COLCHICINE 0.6 MG TABLET PO SCH (08:48)
[2018-12-09] MEDS: BUDESONIDE 0.5 MG/2 ML INHA NPPB SCH ×2 (08:53→19:52)
[2018-12-09] MEDS: ALBUTEROL SULFATE 2.5 MG/3 ML NPPB SCH ×2 (08:53→19:52)
[2018-12-09] MEDS: BISACODYL 10 MG SUPP PR SCH (09:00)
[2018-12-09] MEDS: POLYETHYLENE GLYCOL 17 GM PACKET PO SCH (09:00)
[2018-12-09] MEDS: SENNA/DOCUSATE TABLET PO SCH ×2 (09:00→17:08)
[2018-12-09] MEDS: ACETAMINOPHEN 325 MG TABLET PO PRN (13:31)
[2018-12-09 14:27] VITALS: BP 101/63
[2018-12-09] MEDS: WARFARIN 5 MG TABLET PO-COUM SCH (17:00)
[2018-12-09 18:34] VITALS: BP 116/71
[2018-12-09] MEDS ORDERED: GABAPENTIN 300 MG CAPSULE ONE (21:00)
[2018-12-09] MEDS ORDERED: GABAPENTIN 100 MG CAPSULE ONE (21:00)
[2018-12-09] MEDS: ATORVASTATIN 40 MG TABLET PO SCH (21:06)
[2018-12-09] MEDS: TRAZODONE 50MG TABLET PO SCH (21:07)
[2018-12-10 00:39] VITALS: BP 109/66
[2018-12-10] MEDS: GABAPENTIN 400 MG CAPSULE PO SCH ×2 (06:16→11:48)
[2018-12-10 07:00] VITALS: BP 126/70
[2018-12-10] MEDS: BUDESONIDE 0.5 MG/2 ML INHA NPPB SCH (07:57)
[2018-12-10] MEDS: ALBUTEROL SULFATE 2.5 MG/3 ML NPPB SCH (07:57)
[2018-12-10] MEDS ORDERED: MAGNESIUM HYDROXIDE 8%, 30ML UDC PO SCH (09:00)
[2018-12-10] MEDS: BISACODYL 10 MG SUPP PR SCH (09:00)
[2018-12-10] MEDS: PANTOPROZOLE 40MG TABLET PO SCH (09:15)
[2018-12-10] MEDS: COLCHICINE 0.6 MG TABLET PO SCH (09:15)
[2018-12-10] MEDS: FUROSEMIDE 40 MG TABLET PO SCH (09:16)
[2018-12-10] MEDS: metFORMIN 500 MG TABLET PO SCH (09:16)
[2018-12-10] MEDS: LISINOPRIL 5 MG TABLET PO SCH (09:16)
[2018-12-10] MEDS: METOPROLOL TARTRATE 50 MG TABLET PO SCH (09:17)
[2018-12-10] MEDS: ASPIRIN 81 MG TABLET EC PO SCH (09:17)
[2018-12-10] MEDS: POLYETHYLENE GLYCOL 17 GM PACKET PO SCH (09:17)
[2018-12-10] MEDS: SODIUM CHLORIDE FLUSH 10ML SYR IVF SCH (09:17)
[2018-12-10 09:21] VITALS: BP 133/64
[2018-12-10 13:32] VITALS: BP 104/66
[2018-12-10] MEDS ORDERED: NICO-487 TD (13:53)
[2018-12-10] MEDS ORDERED: NICO-486 TD (13:53)
[2018-12-10] MEDS ORDERED: NICO-485 TD (13:53)
[2018-12-10] MEDS ORDERED: METH4TAB2 PO (13:53)
== END 2018-12-10 15:24 | disposition home health service (06) | DRG 191 ==
LOC: ED 20:39 → EDIP 23:05 → 5SO 12-08 00:22 → 4WST 12-09 05:43
PROVIDERS: ADMIT Family Medicine; ATTEND Family Medicine
DX: J44.1 Chronic obstructive pulmonary disease with (acute) exacerbation (principal); J96.11 Chronic respiratory failure with hypoxia; Z87.01 Personal history of pneumonia (recurrent); E11.40 Type 2 diabetes mellitus with diabetic neuropathy, unspecified; E78.5 Hyperlipidemia, unspecified; F17.210 Nicotine dependence, cigarettes, uncomplicated; I10 Essential (primary) hypertension; I48.91 Unspecified atrial fibrillation; I71.4 Abdominal aortic aneurysm, without rupture; M19.90 Unspecified osteoarthritis, unspecified site; Z63.8 Other specified problems related to primary support group; Z79.01 Long term (current) use of anticoagulants; Z79.82 Long term (current) use of aspirin; Z95.2 Presence of prosthetic heart valve; Z99.81 Dependence on supplemental oxygen; Z90.49 Acquired absence of other specified parts of digestive tract; Z91.018 Allergy to other foods
CPT/HCPCS: 36415; 71045; 74018; 80053; 83880; 84484; 85025; 85610; 93005; 94640; 99285; G0378; J7613; J7626; J2930; J7512